=== PATIENT | female | born 1995 | race Hispanic/Latino ===

== ENCOUNTER 2019-07-26 10:23 | Emergency (ER) | payer OTHER, SELFPAY ==
[2019-07-26] MEDS ORDERED: ACETAMINOPHEN 500 MG TAB ONE (10:56)
[2019-07-26] MEDS ORDERED: ONDANSETRON 4 MG (ODT) TAB ONE (10:57)
[2019-07-26] MEDS ORDERED: NA CHLORIDE 0.9% 1,000 ML ONE ×2 (12:05→13:36)
[2019-07-26 12:07] LABS: Absolute Lymphocytes (CBC) 0.6 K/uL (0.7-4.9); Basophils % 0.4 % (0-1.3); Hematocrit 41.3 % (36.0-45.0); Lymphocytes % 3.9 % (15.3-44.8); MPV 9.5 fL (7.6-11.3); RBC Red Blood Cell Count 4.72 M/uL (3.86-4.86)
[2019-07-26] MEDS ORDERED: FENTANYL CITR 100 MCG/2 ML ONE (12:08)
[2019-07-26 12:11] LABS: Protime INR 1.06
--- NOTE | 2019-07-26 12:14 | RAD REPORT ---
EXAM DESCRIPTION: CT - Head Brain Wo Cont - 07/26/2019 11:50 am CLINICAL HISTORY: Headache COMPARISON: 2014 TECHNIQUE: Computed axial tomography of the head was obtained. IV contrast was not requested. All CT scans are performed using dose optimization technique as appropriate and may include automated exposure control or mA/KV adjustment according to patient size. FINDINGS: An intracranial bleed is not seen . The ventricles are small but without change from the prior exam. This probably is a normal variant No extra-axial fluid collection is noted. Fluid within the sinuses/ mastoids is not seen. IMPRESSION: No acute intracranial abnormality seen. If patient's symptoms persist MRI may be helpful
[2019-07-26 12:20] LABS: Potassium 3.8 mmol/L (3.5-5.1)
[2019-07-26] MEDS ORDERED: ONDANSETRON 4 MG/2 ML VIAL ONE (12:42)
[2019-07-26] MEDS ORDERED: PROMETHAZINE 25 MG/ML VIAL ONE (12:47)
[2019-07-26] MEDS ORDERED: LIDOCAINE 1% MPF 5 ML VIAL ONE (12:47)
[2019-07-26 13:27] LABS: Blood Morphology Comment NOT SEEN (NOT SEEN); Platelet Estimate ADEQ; Urine White Blood Cell Casts OK
[2019-07-26] MEDS ORDERED: CEFTRIAXONE/SWI 1gm 2 GM/20 ML SYR ONE (13:33)
[2019-07-26] MEDS ORDERED: DIAZEPAM 10 MG/2 ML INJ SYRINGE ONE (13:33)
--- NOTE | 2019-07-26 15:03 | RAD REPORT ---
EXAM DESCRIPTION: RAD - Lumbar Puncture For Dx - 07/26/2019 2:56 pm CLINICAL HISTORY: Fever, altered mental status COMPARISON: None. TECHNIQUE: Consent for the procedure was obtained in the emergency department. ED department procedu re was not successful and patient was transferred to Radiology Department for a fluoro guided LP. The patient was placed in an oblique prone position on the fluoroscopic table. The skin of the lower back was prepped and draped in the usual sterile fashion. After anesthetizing the skin and deeper sof t tissues with 1% lidocaine, a 22 gauge needle was advanced into the thecal sac at the L3 level. Intrathecal placement was confirmed. Clear colorless CSF was observed. A total of 8.5 mL was obtained . At the conclusion of the procedure, the needle was withdrawn and a sterile bandage placed over the pu ncture site. The patient tolerated the procedure well without immediate complications. Patient was transferred back to the emergency department for continued care. IMPRESSION: Successful fluoroscopic guided lumbar puncture. Obtain fluid was returned to the emerge ncy department for appropriate studies.
[2019-07-26 15:30] LABS: CSF Glucose 58 mg/dL (40-70)
[2019-07-26 15:36] LABS: Body Fluid Source CSF; Color of fluid Colorless (COLORLESS); Fluid Total Volume 8 ml
[2019-07-26 15:37] LABS: Appearance CLEAR (CLEAR)
[2019-07-26 16:03] LABS: Body Fluid WBC 1 /mm^3
[2019-07-26 16:04] LABS: Appearance CLEAR (CLEAR); Body Fluid Source CSF; Body Fluid WBC 0 /mm^3; Color of fluid Colorless (COLORLESS)
[2019-07-26 17:19] LABS: Urine Bacteria 20-50 /HPF (<20); Urine Culture Reflex Order REFLEXED; Urine Mucus MOD /HPF (NONE SEEN)
--- NOTE | 2019-07-26 17:21 | ER ---
Nurse's Notes [facility] Name: Cris York Age: 23 yrs Sex: Female : 1995 Arrival Date: 07/26/2019 Time: 10:24 Bed 7 Private MD: Hunter Young R Diagnosis: Headache;Fever, unspecified;Nausea and vomiting Presentation: 07/26 10:49 Presenting complaint: Patient states: "I woke up and I keep throwing up. I feel dizzy aj1 and I keep getting the chills" Reports headache. Denies abdominal pain. Transition of care: patient was not received from another setting of care. Onset of symptoms was July 26, 2019. Risk Assessment: Do you want to hurt yourself or someone else? Patient reports no desire to harm self or others. Initial Sepsis Screen: Does the patient meet any 2 criteria? Temp <36.0*C (96.8*F)) or > 38.3*C (100.9*F). HR > 90 bpm. Yes Does the patient have a suspected source of infection? No. Patient's initial sepsis screen is negative. Care prior to arrival: None. 10:49 Method Of Arrival: Ambulatory aj1 10:49 Acuity: JOLENE 3 aj1 Triage Assessment: 10:51 General: Appears uncomfortable, Behavior is calm, cooperative, appropriate for age. aj1 Pain: Complains of pain in occipital area Pain currently is 10 out of 10 on a pain scale. Neuro: Level of Consciousness is awake, alert, obeys commands, Oriented to person, place, time, situation. Respiratory: Airway is patent Respiratory effort is even, unlabored, Respiratory pattern is regular, symmetrical. GI: Reports diarrhea, nausea, vomiting. 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 - Social history:: Smoking status: Patient uses tobacco products, denies chronic smoking, but will smoke occasionally. - Ebola Screening: : Patient denies travel to an Ebola-affected area in the 21 days before illness onset. Screenin:48 Abuse screen: Denies threats or abuse. Denies injuries from another. Nutritional sg screening: No deficits noted. Tuberculosis screening: Never had TB. Fall Risk None identified. Assessment: 10:30 General: Appears in no apparent distress. uncomfortable, well groomed, well developed, sg well nourished, Behavior is calm, cooperative, appropriate for age. Pain: Complains of pain in occipital area Quality of pain is described as aching, throbbing. Neuro: Level of Consciousness is awake, alert, obeys commands, Oriented to person, place, time, [place] are equal bilaterally Moves all extremities. Full function Gait is steady, Speech is normal, Facial symmetry appears normal, Pupils are PERRLA, Reports headache in entire occipital area. Cardiovascular: Capillary refill is brisk in bilateral fingers Patient's skin is warm and dry. Chest pain is denied. Respiratory: Airway is patent Respiratory effort is even, unlabored, Respiratory pattern is regular, symmetrical. GI: Abdomen is round non-distended, Reports nausea, tolerance of fluids, tolerance of food. : No signs and/or symptoms were reported regarding the genitourinary system. EENT: No signs and/or symptoms were reported regarding the EENT system. Derm: Skin is pink, warm \\T\\ dry. Musculoskeletal: Circulation, motion, and sensation intact. Range of motion: intact in all extremities. 11:30 Reassessment: Patient appears in no apparent distress at this time. Patient and/or sg family updated on plan of care and expected duration. Pain level reassessed. Patient is alert, oriented x 3, equal unlabored respirations, skin warm/dry/pink. Patient states feeling better. 12:30 Reassessment: Patient appears in no apparent distress at this time. Patient and/or sg family updated on plan of care and expected duration. Pain level reassessed. Patient is alert, oriented x 3, equal unlabored respirations, skin warm/dry/pink. Patient states feeling better. 13:45 Reassessment: Patient appears in no apparent distress at this time. pt transported to radiology for fluro LP at this time, pt left in stable condition with community service technician Cartwright. 14:44 Reassessment: Patient appears in no apparent distress at this time. pt remains off the unit for Fluoro LP at this time. 16:40 Reassessment: Patient appears in no apparent distress at this time. Patient and/or sg family updated on plan of care and expected duration. Pain level reassessed. Patient is alert, oriented x 3, equal unlabored respirations, skin warm/dry/pink. Patient states feeling better. 16:49 Reassessment: Patient appears in no apparent distress at this time. pt tolerating sg stevie crackers and sprite at this time. Vital Signs: 10:51 BP 112 / 56; Pulse 120; Resp 18; Temp 101.2; Pulse Ox 97% on R/A; Weight 89.36 kg (R); aj1 Height 5 ft. 3 in. (160.02 cm) (R); Pain 10/10; 14:55 BP 116 / 62; Pulse 84; Resp 14; Temp 98.8; Pulse Ox 100% on R/A; sg 15:50 BP 117 / 60; Pulse 87; Resp 17; Pulse Ox 97% on R/A; sg 17:00 BP 128 / 77; Pulse 92; Resp 17; Temp 99.0; Pulse Ox 99% on R/A; sg 10:51 Body Mass Index 34.90 (89.36 kg, 160.02 cm) aj1 ED Course: 10:24 Patient arrived in ED. as 10:25 Hunter Young MD is Private Physician. as 10:50 Triage completed. aj1 10:51 Arm band placed on Patient placed in waiting room, Patient notified of wait time. aj1 11:04 Strep Sent. hb 11:04 Flu Sent. hb 11:21 Santo Montes De Oca PA is PHCP. cp 11:21 Kei Julio MD is Attending Physician. cp 11:29 Evan Guzman, GHASSAN is Primary Nurse. sg 11:37 Throat Culture Sent. sv 11:45 Initial lab(s) drawn, by me, sent to lab. jb1 11:57 CT Head Brain wo Cont In Process Unspecified. EDMS 12:01 Inserted saline lock: 22 gauge in right antecubital area, using aseptic technique. jb1 Blood collected. 15:06 Lumbar Puncture For Dx In Process Unspecified. EDMS 16:50 Patient has correct armband on for positive identification. Bed in low position. Call sg light in reach. 17:54 No provider procedures requiring assistance completed. IV discontinued, intact, hb bleeding controlled, No redness/swelling at site. Pressure dressing applied. Administered Medications: 10:57 Drug: Zofran 4 mg Route: PO; aj1 11:32 Follow up: Response: No adverse reaction; Nausea unchanged sg 10:58 Drug: Tylenol 1000 mg Route: PO; aj1 11:25 Follow up: Response: No adverse reaction sg 12:12 Drug: NS 0.9% 1000 ml Route: IV; Rate: 1 bolus; Site: right antecubital; hb 12:12 Drug: fentaNYL (PF) 25 mcg Route: IVP; Site: right antecubital; hb 13:00 Follow up: Response: No adverse reaction; Pain is decreased; RASS: Drowsy (-1) sg 12:40 Drug: Zofran 4 mg Route: IVP; Site: right antecubital; sg 13:15 Follow up: Response: No adverse reaction; Nausea is decreased sg 12:50 Drug: Phenergan 12.5 mg Route: IVP; Site: right antecubital; sg 13:40 Follow up: Response: No adverse reaction; Nausea is decreased sg 13:42 Drug: Diazepam 2 mg Route: IVP; Site: right antecubital; sg 14:49 Follow up: Response: No adverse reaction; RASS: Drowsy (-1) sg 16:42 Drug: Rocephin 2 grams Route: IV; Rate: calculated rate; Site: right antecubital; sg 17:28 Not Given (Patient Refused; i just want to drink sprite): NS 0.9% 1000 ml IV at 1 bolus sg Per protocol; 1000 mL bolus Outcome: 17:20 Discharge ordered by . 17:54 Discharged to home ambulatory, with family. hb 17:54 Condition: stable 17:54 Discharge instructions given to patient, Instructed on discharge instructions, follow up and referral plans. medication usage, Demonstrated understanding of instructions, follow-up care, medications, Prescriptions given X 3. 17:57 Patient left the ED. Signatures: Dispatcher [employer] EDMS Kenney Soler Angela, RN RN ajTrina Calixto RN RN sv Gay, Steven, RN RN sg Martinez, Amelia as Page, Corey, PA PA cp Baxter, Heather, RN RN
--- NOTE | 2019-07-26 17:21 | EDPHYS ---
Physician Documentation [facility] Name: Cris York Age: 23 yrs Sex: Female : 1995 Arrival Date: 07/26/2019 Time: 10:24 Bed 7 Private MD: Hunter Young R ED Physician Kei Julio HPI: 07/26 11:05 This 23 yrs old Female presents to ER via Ambulatory with complaints of cp Vomiting, Fever. 11:05 The patient presents to the emergency department with nausea, that is moderate, cp vomiting, that is intermittent. Onset: The symptoms/episode began/occurred this morning. Associated signs and symptoms: Pertinent positives: fever, headache. 11:05 Severity of symptoms: in the emergency department the symptoms are unchanged despite cp home interventions. 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 - Social history:: Smoking status: Patient uses tobacco products, denies chronic smoking, but will smoke occasionally. - Ebola Screening: : Patient denies travel to an Ebola-affected area in the 21 days before illness onset. ROS: 11:15 Constitutional: Positive for fever, Negative for body aches, chills, poor PO intake. cp 11:15 Eyes: Negative for injury, pain, redness, and discharge. cp 11:15 ENT: Negative for drainage from ear(s), ear pain, sore throat, difficulty swallowing, difficulty handling secretions. 11:15 Neck: Positive for pain with movement, pain at rest, tenderness. 11:15 Cardiovascular: Negative for chest pain, palpitations. 11:15 Respiratory: Negative for cough, shortness of breath, wheezing. 11:15 Abdomen/GI: Positive for nausea and vomiting, Negative for abdominal pain, diarrhea, constipation. 11:15 : Negative for urinary symptoms. 11:15 Skin: Negative for rash. 11:15 Neuro: Positive for headache, Negative for altered mental status, weakness. 11:15 All other systems are negative. Exam: 11:25 Constitutional: The patient appears in no acute distress, alert, awake, cp non-diaphoretic, non-toxic, well developed, well nourished, obese, uncomfortable. 11:25 Head/Face: Normocephalic, atraumatic. Eyes: Pupils equal round and reactive to light, cp extra-ocular motions intact. Lids and lashes normal. Conjunctiva and sclera are non-icteric and not injected. Cornea within normal limits. Periorbital areas with no swelling, redness, or edema. ENT: Nares patent. No nasal discharge, no septal abnormalities noted. Tympanic membranes are normal and external auditory canals are clear. Oropharynx with no redness, swelling, or masses, exudates, or evidence of obstruction, uvula midline. Mucous membranes moist. 11:25 Neck: ROM/movement: pain, that is mild, with any movement, limited range of motion, is not appreciated, nuchal rigidity, is not appreciated. 11:25 Chest/axilla: Inspection: normal, Palpation: is normal, no crepitus, no tenderness. 11:25 Cardiovascular: Rate: tachycardic, Rhythm: regular. 11:25 Respiratory: the patient does not display signs of respiratory distress, Respirations: normal, no use of accessory muscles, no retractions, no splinting, no tachypnea, labored breathing, is not present, Breath sounds: are clear throughout, no decreased breath sounds, no stridor, no wheezing. 11:25 Abdomen/GI: Inspection: abdomen appears normal, Bowel sounds: active, all quadrants, Palpation: abdomen is soft and non-tender, in all quadrants, rebound tenderness, is not appreciated, voluntary guarding, is not appreciated, involuntary guarding, is not appreciated. 11:25 Back: pain, is absent, ROM is normal. 11:25 Skin: no rash present. 11:25 Neuro: Orientation: to person, place \T\ time. Mentation: is normal, Cerebellar function: is grossly normal, Motor: moves all fours, strength is normal, Sensation: is normal. Vital Signs: 10:51 BP 112 / 56; Pulse 120; Resp 18; Temp 101.2; Pulse Ox 97% on R/A; Weight 89.36 kg (R); aj1 Height 5 ft. 3 in. (160.02 cm) (R); Pain 10/10; 14:55 BP 116 / 62; Pulse 84; Resp 14; Temp 98.8; Pulse Ox 100% on R/A; sg 15:50 BP 117 / 60; Pulse 87; Resp 17; Pulse Ox 97% on R/A; sg 17:00 BP 128 / 77; Pulse 92; Resp 17; Temp 99.0; Pulse Ox 99% on R/A; sg 10:51 Body Mass Index 34.90 (89.36 kg, 160.02 cm) [facility] Procedures: 12:30 Lumbar Puncture: Patient placed in left lateral decubitus position. Prepped with cp Betadine. Procedure unsuccessful. Patient tolerated well. MDM: 11:31 Patient medically screened. cp 12:00 Differential diagnosis: gastritis, viral gastroenteritis, gastroenteritis, meningitis, cp viral illness, influenza. 17:20 Data reviewed: vital signs, nurses notes, lab test result(s), radiologic studies, CT cp scan, I have discussed the patient's presentation/case with the attending Emergency Department Physician; and as a result, I will discharge patient. 17:20 Counseling: I had a detailed discussion with the patient and/or guardian regarding: the cp historical points, exam findings, and any diagnostic results supporting the discharge/admit diagnosis, lab results, radiology results, to return to the emergency department if symptoms worsen or persist or if there are any questions or concerns that arise at home. Response to treatment: the patient's symptoms have markedly improved after treatment. ED course: VSS. Headache and nausea markedly improved. Vomiting resolved. CSF negative for meningitis. Will discharge to home for continued monitoring. 07/26 10:58 Order name: Flu; Complete Time: 12:13 [facility] 07/26 10:58 Order name: Strep; Complete Time: 12:13 [facility] 07/26 11:24 Order name: Throat Culture [facility] 07/26 11:37 Order name: Urine Microscopic Only 07/26 11:37 Order name: CBC with Diff; Complete Time: 14:32 07/26 12:23 Interpretation: Normal except: MICHELE% 91.3; LYM% 3.9; NEUT A 14.8; LYMA 0.6; WBC 16.2. 07/26 11:37 Order name: BMP; Complete Time: 12:22 07/26 14:52 Interpretation: Normal except: GFR 83. 07/26 11:37 Order name: PT-INR; Complete Time: 12:22 07/26 12:04 Order name: Spinal Fluid Profile; Complete Time: 16:14 cp 07/26 12:18 Order name: [place] Screen Profile; Complete Time: 14:32 sg 07/26 14:32 Interpretation: Reviewed. 07/26 13:32 Order name: CBC Smear Scan; Complete Time: 14:32 [facility] 07/26 15:22 Order name: Body Fluid Cell Count; Complete Time: 16:14 [facility] 07/26 15:22 Order name: Miscellaneous Test Lab; Complete Time: 16:03 [facility] 07/26 15:22 Order name: CSF Culture [facility] 07/26 16:39 Order name: Urine Dipstick--Ancillary (enter results) 07/26 11:38 Order name: CT Head Brain wo Cont; Complete Time: 14:32 07/26 14:32 Interpretation: Report reviewed. 07/26 13:26 Order name: Lumbar Puncture For Dx; Complete Time: 15:31 [facility] 07/26 16:39 Order name: Urine --Ancillary (enter results) 07/26 17:23 Order name: Urine Culture [facility] 07/26 11:37 Order name: IV; Complete Time: 12:02 07/26 13:20 Order name: Lumbar Puncture Consent; Complete Time: 13:28 07/26 16:15 Order name: PO challenge; Complete Time: 16:49 cp Administered Medications: 10:57 Drug: Zofran 4 mg Route: PO; aj1 11:32 Follow up: Response: No adverse reaction; Nausea unchanged sg 10:58 Drug: Tylenol 1000 mg Route: PO; aj1 11:25 Follow up: Response: No adverse reaction sg 12:12 Drug: NS 0.9% 1000 ml Route: IV; Rate: 1 bolus; Site: right antecubital; hb 12:12 Drug: fentaNYL (PF) 25 mcg Route: IVP; Site: right antecubital; hb 13:00 Follow up: Response: No adverse reaction; Pain is decreased; RASS: Drowsy (-1) sg 12:40 Drug: Zofran 4 mg Route: IVP; Site: right antecubital; sg 13:15 Follow up: Response: No adverse reaction; Nausea is decreased sg 12:50 Drug: Phenergan 12.5 mg Route: IVP; Site: right antecubital; sg 13:40 Follow up: Response: No adverse reaction; Nausea is decreased sg 13:42 Drug: Diazepam 2 mg Route: IVP; Site: right antecubital; sg 14:49 Follow up: Response: No adverse reaction; RASS: Drowsy (-1) sg 16:42 Drug: Rocephin 2 grams Route: IV; Rate: calculated rate; Site: right antecubital; sg 17:28 Not Given (Patient Refused; i just want to drink sprite): NS 0.9% 1000 ml IV at 1 bolus sg Per protocol; 1000 mL bolus Disposition: 07/26/19 17:20 Discharged to Home. Impression: Headache, Fever, unspecified, Nausea and vomiting. - Condition is Stable. - Discharge Instructions: Dehydration, Adult, Fever, Adult, General Headache Without Cause, Nausea and Vomiting, Adult. - Prescriptions for Ibuprofen 800 mg Oral Tablet - take 1 tablet by ORAL route every 8 hours As needed take with food; 30 tablet. Zofran 4 mg Oral Tablet - take 1 tablet by ORAL route every 12 hours As needed; 20 tablet. Phenergan 25 mg Rectal Suppository - insert 1 suppository by RECTAL route every 6 hours As needed; 12 suppository. - Work release form, Medication Reconciliation Form, Thank You Letter, Antibiotic Education, Prescription Opioid Use form. - Follow up: Private Physician; When: 2 - 3 days; Reason: Recheck today's complaints. - Problem is new. - Symptoms have improved. Addendum: 07/29/2019 08:46 Co-signature as Attending Physician, Kei Julio MD I agree with the assessment and k dr plan of care. Signatures: Dispatcher [employer] [facility] Krystina Schultz RN RN aj1 Evan Guzman RN RN sg Rittger, Kevin, MD MD kdr Page, Corey, PA PA cp Kari Motta, GHASSAN RN hb Corrections: (The following items were deleted from the chart) 07/26 12:23 12:13 Normal except: WBC 16.2; MICHELE% 91.3; LYM% 3.9; NEUT A 14.8. cp cp 13:26 13:25 Fluoro Guide Spinal Inj ordered. [facility] 17:57 17:20 07/26/2019 17:20 Discharged to Home. Impression: Headache; Fever, unspecified; hb Nausea and vomiting. Condition is Stable. Forms are Medication Reconciliation Form, Thank You Letter, Antibiotic Education, Prescription Opioid Use. Follow up: Private Physician; When: 2 - 3 days; Reason: Recheck today's complaints. Problem is new. Symptoms have improved. cp
[2019-07-26 17:25] LABS: Urine Blood 1+ (NEG); Urine Glucose NEGATIVE (NEG); Urine Protein TRACE (NEG)
[2019-07-26 19:00] VITALS: BP 128/77; TEMP 99; O2SAT 99
== END 2019-07-26 17:57 | disposition home or self-care (01) ==
LOC: ER 10:23
PROC: 009U3ZX Drainage of Spinal Canal, Percutaneous Approach, Diagnostic (ICD-10-PCS; principal; 2019-07-26)
DX: R51 Headache (principal); R11.2 Nausea with vomiting, unspecified; Z72.0 Tobacco use
CPT/HCPCS: 36415; 62270; 70450; 77003; 80048; 81003; 81015; 81025; 82945; 84157; 85025; 85610; 86308; 87070; 87081; 87086; 87088; 87804; 89050; 96374; 96375; 99284; J0696; J2405; J2550; J3010; J3360; J7030

== ENCOUNTER 2019-09-08 01:47 | Emergency (ER) | payer SELFPAY ==
[2019-09-08] MEDS ORDERED: NA CHLORIDE 0.9% 1,000 ML ONE (02:06)
[2019-09-08] MEDS ORDERED: ONDANSETRON 4 MG/2 ML VIAL ONE (02:07)
[2019-09-08 02:36] LABS: Absolute Lymphocytes (CBC) 2.4 K/uL (0.7-4.9); Basophils % 0.4 % (0-1.3); Hematocrit 36.8 % (36.0-45.0); Lymphocytes % 36.4 % (15.3-44.8); RBC Red Blood Cell Count 4.17 M/uL (3.86-4.86)
[2019-09-08] MEDS ORDERED: CEFAZOLIN/SWI 1gm 1 GM/10 ML SYR ONE (02:42)
[2019-09-08 02:44] LABS: Protime INR 0.98
[2019-09-08 02:56] LABS: ALT/SGPT 24 U/L (12-78); AST/SGOT 24 U/L (15-37); Albumin 3.7 g/dL (3.4-5.0); Alkaline Phosphatase 137 U/L (45-117); BUN Blood Urea Nitrogen 8 mg/dL (7-18); Bicarbonate 20 mmol/L (21-32); Bilirubin Direct < 0.1 mg/dL (0-0.2); Bilirubin Total 0.3 mg/dL (0.2-1.0); Glucose Level 104 mg/dL (74-106); Protein, Total 7.6 g/dL (6.4-8.2); Sodium Level 143 mmol/L (136-145)
[2019-09-08 02:57] LABS: Potassium 2.9 mmol/L (3.5-5.1)
[2019-09-08] MEDS ORDERED: POTASSIUM 25 MEQ EFFERV TAB ONE (03:00)
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
[2019-09-08] MEDS ORDERED: HYDROCODONE/APAP 10/325 TAB ONE (03:36)
[2019-09-08] MEDS ORDERED: ONDANSETRON 4 MG (ODT) TAB ONE (03:36)
[2019-09-08 05:22] VITALS: BP 116/65; O2SAT 98
--- NOTE | 2019-09-08 06:22 | EKG ---
Test Date: 2019-09-08 Test Time: 03:40:37 Director Hospice Operations: RR MEASUREMENT RESULTS: Intervals: Rate: 92 RI: 172 QRSD: 82 QT: 360 QTc: 445 [place]: P: 32 RI: 172 QRS: 28 T: 6 INTERPRETIVE STATEMENTS: Normal sinus rhythm Possible Left atrial enlargement Borderline ECG Compared to ECG 06/06/2017 21:14:01 No significant changes Electronically Signed On 09-08-19 06:22:09 [employer]AMP [employer]OOK by Spike Morgan
--- NOTE | 2019-09-08 11:51 | RAD REPORT ---
EXAM DESCRIPTION: RAD - Chest Single View - 09/08/2019 2:11 am CLINICAL HISTORY: COUGH Chest pain. COMPARISON: Chest Pa And Lat (2 Views) dated 06/06/2017 FINDINGS: Portable technique limits examination quality. The lungs are grossly clear. The heart is normal in size. No displaced fractures. IMPRESSION: No acute intrathoracic process suspected.
--- NOTE | 2019-09-09 10:19 | RAD REPORT ---
EXAM DESCRIPTION: CT Head and Cervical Spine Without Intravenous Contrast CLINICAL HISTORY: The patient is 24 years old and is Female; PAIN TECHNIQUE: Axial computed tomography images of the head/brain and cervical spine without intravenous contrast. Sagittal and coronal reformatted images were created and reviewed. This CT exam was pe rformed using one or more of the following dose reduction techniques: automated exposure control, a djustment of the mA and/or kV according to patient size, and/or use of iterative reconstruction techn ique. COMPARISON: None. FINDINGS: BRAIN: Unremarkable. No hemorrhage. No significant white matter disease. No edema . VENTRICLES: Unremarkable. No ventriculomegaly. SKULL: No acute fracture. SINUSES: Scattered opacification of the ethmoid. No air-fluid level. MASTOID AIR CELLS: Mastoid air cells are well pneumatized. ORBITS: The globes and orbits are unremarkable. VERTEBRAE: Reversal of cervical lordosis centered at C6-7. Preservation of vertebral body alignment. No acute fracture. DISCS/SPINAL CANAL/NEURAL FORAMINA: No acute findings. No spinal canal stenosis. SOFT TISSUES: Right frontal laceration and associated swelling with overlying skin staple row. THYROID: Visualized thyroid is within normal limits. LUNG APICES: Visualized lungs are clear. IMPRESSION: 1. No acute intracranial abnormality. 2. Reversal of cervical lordosis without acute fracture or subluxation. 3. Right frontal laceration and associated swelling with overlying skin staple row. Electronically signed by: Kevin Alcantar DO 09/08/2019 2:55 AM CIRCUIT BREAKER ASSEMBLER Due to temporary technical issues with the PACS/Fluency reporting system, reports are being signed by the in house radiologist as a courtesy to ensure prompt reporting. The interpreting radiologist is f ully responsible for the content of the report.
== END 2019-09-08 03:45 | disposition home or self-care (01) ==
LOC: ER 01:47
PROC: 0JQ00ZZ Repair Scalp Subcutaneous Tissue and Fascia, Open Approach (ICD-10-PCS; principal; 2019-09-08)
DX: S00.90XA Unspecified superficial injury of unspecified part of head, initial encounter (principal); Y04.2XXA Assault by strike against or bumped into by another person, initial encounter; Y93.89 Activity, other specified; Y92.89 Other specified places as the place of occurrence of the external cause; Z72.0 Tobacco use; E87.6 Hypokalemia; R11.10 Vomiting, unspecified; S01.01XA Laceration without foreign body of scalp, initial encounter
CPT/HCPCS: 36415; 70450; 71045; 72125; 80048; 80076; 80320; 80329; 85025; 85610; 85730; 93005; 96361; 96365; 96375; 99284; J0690; J2405; J7030

== ENCOUNTER 2019-09-17 17:32 | Emergency (ER) | payer SELFPAY ==
--- OUTSIDE RECORDS SUMMARY | 2019-09-17 17:34 | XMS REPORT ---
:1995 [facility] [address] [place] [address] Dr. Doss [address] [place] [id number] Care Team Providers Name Role Phone Unavailable Unavailable Unavailable Problems This patient has no known problems. Allergies, Adverse Reactions, Alerts This patient has no known allergies or adverse reactions. Medications This patient has no known medications.
--- NOTE | 2019-09-17 18:01 | ER ---
Nurse's Notes [facility] Name: Cris York Age: 24 yrs Sex: Female : 1995 Arrival Date: 09/17/2019 Time: 17:35 Bed 11 Private MD: Diagnosis: Encounter for removal of sutures-shannon Presentation: 09/17 17:54 Presenting complaint: Patient states: SHANNON PUT ON 8 DAYS AGO. Transition of care: rv patient was not received from another setting of care. Onset of symptoms was September 17, 2019 at 17:55. Risk Assessment: Do you want to hurt yourself or someone else? Patient reports no desire to harm self or others. Initial Sepsis Screen: Does the patient meet any 2 criteria? No. Patient's initial sepsis screen is negative. Does the patient have a suspected source of infection? No. Patient's initial sepsis screen is negative. Care prior to arrival: None. 17:54 Method Of Arrival: Ambulatory rv 17:54 Acuity: JOLENE 5 rv Triage Assessment: 17:58 General: Behavior is calm. General: Appears in no apparent distress. Pain: Denies pain. rv Historical: - Allergies: 17:56 No Known Allergies; rv - Home Meds: 17:56 Ibuprofen Oral [Active]; rv - PMHx: 17:56 None; rv - PSHx: 17:56 None; rv - Immunization history:: Adult Immunizations up to date. - Social history:: Smoking status: Patient uses tobacco products, denies chronic smoking, but will smoke occasionally. - Ebola Screening: : No symptoms or risks identified at this time. Screenin:58 Abuse screen: Denies threats or abuse. Denies injuries from another. Nutritional rv screening: No deficits noted. Tuberculosis screening: No symptoms or risk factors identified. Fall Risk None identified. Assessment: 17:57 General: Appears in no apparent distress. comfortable. Pain: Denies pain. Neuro: Level rv of Consciousness is awake, alert, obeys commands, Oriented to person, place, time, situation. Cardiovascular: Patient's skin is warm and dry. Respiratory: Airway is patent. GI: No signs and/or symptoms were reported involving the gastrointestinal system. : No signs and/or symptoms were reported regarding the genitourinary system. EENT: No signs and/or symptoms were reported regarding the EENT system. Derm: Skin is intact. Musculoskeletal: No signs and/or symptoms reported regarding the musculoskeletal system. Vital Signs: 17:55 Pulse 67; Resp 16; Temp 99; Pulse Ox 100% ; rv ED Course: 17:35 Patient arrived in ED. mr 17:55 Triage completed. rv 17:57 [facility]-C [facility]. kb 17:57 El Adrian MD is Attending Physician. kb 17:58 Patient has correct armband on for positive identification. Pulse ox on. rv 17:58 STAPLE REMOVAL. Patient did not have IV access during this emergency room visit. rv 17:59 Darvin Garcia, RN is Primary Nurse. rv 17:59 Patient notified of wait time. rv Administered Medications: No medications were administered Outcome: 17:58 Discharge ordered by . kb 17:59 Discharged to home ambulatory. rv 17:59 Condition: good 17:59 Discharge instructions given to patient, Instructed on discharge instructions, follow up and referral plans. Demonstrated understanding of instructions, follow-up care. 17:59 Patient left the ED. rv Signatures: Norma Greer FNP-C FNP-Khadijah Nuzhat Ferreira mr Darvin Garcia, RN RN rv
--- NOTE | 2019-09-17 18:01 | EDPHYS ---
Physician Documentation [facility] Name: Cris York Age: 24 yrs Sex: Female : 1995 Arrival Date: 09/17/2019 Time: 17:35 Bed 11 Private MD: ED Physician El Adrian HPI: 09/17 18:02 This 24 yrs old Female presents to ER via Ambulatory with complaints of Staple kb Removal. 18:02 The patient has shannon on the right frontal area. Previous treatment: The patient was kb initially treated on September 08, 2019, the care was rendered at [facility]. Sutures/shannon progress: The patient has no c/o's. The wound is well-healing with no redness, swelling, discharge, or dehiscence reported. The patient has not experienced similar symptoms in the past. The patient has not recently seen a physician. Historical: - Allergies: 17:56 No Known Allergies; rv - Home Meds: 17:56 Ibuprofen Oral [Active]; rv - PMHx: 17:56 None; rv - PSHx: 17:56 None; rv - Immunization history:: Adult Immunizations up to date. - Social history:: Smoking status: Patient uses tobacco products, denies chronic smoking, but will smoke occasionally. - Ebola Screening: : No symptoms or risks identified at this time. ROS: 18:01 Constitutional: Negative for fever, chills, and weight loss, Neck: Negative for injury, kb pain, and swelling, Cardiovascular: Negative for chest pain, palpitations, and edema, Respiratory: Negative for shortness of breath, cough, wheezing, and pleuritic chest pain, Abdomen/GI: Negative for abdominal pain, nausea, vomiting, diarrhea, and constipation, Back: Negative for injury and pain, MS/Extremity: Negative for injury and deformity, Neuro: Negative for headache, weakness, numbness, tingling, and seizure. 18:01 Skin: Positive for shannon to right side of scalp. Exam: 18:01 Constitutional: This is a well developed, well nourished patient who is awake, alert, kb and in no acute distress. Head/Face: Normocephalic, atraumatic. ENT: Nares patent. No nasal discharge, no septal abnormalities noted. Tympanic membranes are normal and external auditory canals are clear. Oropharynx with no redness, swelling, or masses, exudates, or evidence of obstruction, uvula midline. Mucous membranes moist. Neck: Trachea midline, no thyromegaly or masses palpated, and no cervical lymphadenopathy. Supple, full range of motion without nuchal rigidity, or vertebral point tenderness. No Meningismus. Chest/axilla: Normal chest wall appearance and motion. Nontender with no deformity. No lesions are appreciated. Cardiovascular: Regular rate and rhythm with a normal S1 and S2. No gallops, murmurs, or rubs. Normal PMI, no JVD. No pulse deficits. Respiratory: Lungs have equal breath sounds bilaterally, clear to auscultation and percussion. No rales, rhonchi or wheezes noted. No increased work of breathing, no retractions or nasal flaring. Abdomen/GI: Soft, non-tender, with normal bowel sounds. No distension or tympany. No guarding or rebound. No evidence of tenderness throughout. MS/ Extremity: Pulses equal, no cyanosis. Neurovascular intact. Full, normal range of motion. Neuro: Awake and alert, GCS 15, oriented to person, place, time, and situation. Cranial nerves II-XII grossly intact. Motor strength 5/5 in all extremities. Sensory grossly intact. Cerebellar exam normal. Normal gait. 18:01 Skin: Wound recheck: Staple laceration closure: the wound is healing well, the edges are well approximated, no evidence of dehiscence, no drainage, no erythema, no swelling. Vital Signs: 17:55 Pulse 67; Resp 16; Temp 99; Pulse Ox 100% ; rv Procedures: 18:01 Suture/Staple removal: Removed 4 shannon, from right frontal area, site appears well kb healed, Patient tolerated well. MDM: 17:58 Patient medically screened. kb 18:00 Data reviewed: vital signs, nurses notes. Data interpreted: Pulse oximetry: on room air kb is 100 %. Interpretation: normal. Counseling: I had a detailed discussion with the patient and/or guardian regarding: the historical points, exam findings, and any diagnostic results supporting the discharge/admit diagnosis, the need for outpatient follow up, a family practitioner, to return to the emergency department if symptoms worsen or persist or if there are any questions or concerns that arise at home. Administered Medications: No medications were administered Disposition: 18:16 Co-signature as Attending Physician, El Adrian MD. rn Disposition: 09/17/19 17:58 Discharged to Home. Impression: Encounter for removal of sutures - shannon . - Condition is Stable. - Discharge Instructions: Suture Removal, Care After. - Medication Reconciliation Form, Thank You Letter, Antibiotic Education, Prescription Opioid Use form. - Follow up: Emergency Department; When: As needed; Reason: Worsening of condition. Follow up: Private Physician; When: 2 - 3 days; Reason: Recheck today's complaints, Continuance of care, Re-evaluation by your physician. Signatures: Norma Greer, TERI-C COLLEGE ADVISOR-CkEl Chung MD MD rn Darvin Garcia RN RN rv Corrections: (The following items were deleted from the chart) 17:59 17:58 09/17/2019 17:58 Discharged to Home. Impression: Encounter for removal of sutures rv - shannon . Condition is Stable. Forms are Medication Reconciliation Form, Thank You Letter, Antibiotic Education, Prescription Opioid Use. Follow up: Emergency Department; When: As needed; Reason: Worsening of condition. Follow up: Private Physician; When: 2 - 3 days; Reason: Recheck today's complaints, Continuance of care, Re-evaluation by your physician. kb
[2019-09-17 18:07] VITALS: TEMP 99; O2SAT 100
== END 2019-09-17 17:59 | disposition home or self-care (01) ==
LOC: ER 17:32
DX: Z48.02 Encounter for removal of sutures (principal)
CPT/HCPCS: 99282

== ENCOUNTER 2020-01-10 16:12 | Emergency (ER) | payer SELFPAY ==
--- OUTSIDE RECORDS SUMMARY | 2020-01-10 16:14 | XMS REPORT ---
:1995 [facility] [address] [place] [address] Dr. [address] [place] [id number] Care Team Providers Name Role Phone Unavailable Unavailable Unavailable Problems This patient has no known problems. Allergies, Adverse Reactions, Alerts This patient has no known allergies or adverse reactions. Medications This patient has no known medications.
[2020-01-10] MEDS ORDERED: ONDANSETRON 4 MG (ODT) TAB ONE (17:22)
[2020-01-10] MEDS ORDERED: NA CHLORIDE 0.9% 1,000 ML ONE (17:32)
[2020-01-10] MEDS ORDERED: ACETAMINOPHEN 500 MG TAB ONE (17:36)
[2020-01-10 18:04] LABS: Absolute Lymphocytes (CBC) 0.8 K/uL (0.7-4.9); Basophils % 0.5 % (0-1.3); Lymphocytes % 11.4 % (15.3-44.8); MPV 9.6 fL (7.6-11.3); RBC Red Blood Cell Count 4.45 M/uL (3.86-4.86)
[2020-01-10 18:20] LABS: ALT/SGPT 25 U/L (12-78); AST/SGOT 18 U/L (15-37); Albumin 3.5 g/dL (3.4-5.0); Alkaline Phosphatase 106 U/L (45-117); BUN Blood Urea Nitrogen 6 mg/dL (7-18); Bicarbonate 27 mmol/L (21-32); Bilirubin Direct 0.1 mg/dL (0-0.2); Bilirubin Total 0.4 mg/dL (0.2-1.0); Glucose Level 91 mg/dL (74-106); Lipase 80 U/L (73-393); Potassium 3.8 mmol/L (3.5-5.1); Protein, Total 7.7 g/dL (6.4-8.2); Sodium Level 139 mmol/L (136-145)
--- NOTE | 2020-01-10 18:20 | RAD REPORT ---
EXAM DESCRIPTION: RAD - Chest Pa And Lat (2 Views) - 01/10/2020 6:11 pm CLINICAL HISTORY: Cough;Fever Chest pain. COMPARISON: Chest Single View dated 09/08/2019; Chest Pa And Lat (2 Views) dated 06/06/2017 FINDINGS: The lungs are clear. The heart is normal in size. No displaced fractures. IMPRESSION: No acute or concerning finding suspected.
[2020-01-10] MEDS ORDERED: ONDANSETRON 4 MG/2 ML VIAL ONE (19:20)
[2020-01-10] MEDS ORDERED: IBUPROFEN 400 MG TAB ONE (19:20)
--- NOTE | 2020-01-10 19:38 | EDPHYS ---
Physician Documentation [facility] Name: Cris York Age: 24 yrs Sex: Female : 1995 Arrival Date: 01/10/2020 Time: 16:13 Bed 25 Private MD: ED Physician Santo Amezquita HPI: 01/09 16:40 This 24 yrs old Female presents to ER via Ambulatory with complaints of Cough, cp Vomiting, Breathing Difficulty. 16:40 The patient or guardian reports cough, that is intermittent, difficulty breathing. cp Onset: The symptoms/episode began/occurred 2 day(s) ago. Severity of symptoms: in the emergency department the symptoms are unchanged, despite home interventions. Associated signs and symptoms: Pertinent positives: fever, nausea, sore throat, vomiting, Pertinent negatives: chest pain. 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 - Social history:: Smoking status: Patient reports the use of cigarette tobacco products, denies chronic smoking, but will smoke occasionally. ROS: 16:45 Constitutional: Negative for fever. cp 16:45 Eyes: Negative for injury, pain, redness, and discharge. cp 16:45 ENT: Positive for sore throat, Negative for drainage from ear(s), ear pain, difficulty swallowing, difficulty handling secretions. 16:45 Cardiovascular: Negative for chest pain. 16:45 Respiratory: Positive for cough, shortness of breath. 16:45 Abdomen/GI: Positive for nausea and vomiting, Negative for diarrhea, constipation. 16:45 Skin: Negative for rash. 16:45 Neuro: Positive for dizziness, Negative for altered mental status, headache, weakness. 16:45 All other systems are negative. Exam: 16:55 Constitutional: The patient appears in no acute distress, alert, awake, cp non-diaphoretic, non-toxic, well developed, well nourished, obese. 16:55 Head/Face: Normocephalic, atraumatic. cp 16:55 Eyes: Periorbital structures: appear normal, Pupils: equal, round, and reactive to light and accomodation, Extraocular movements: intact throughout, Conjunctiva: normal, no exudate, no injection, Sclera: no appreciated abnormality, Lids and lashes: appear normal, bilaterally. 16:55 ENT: External ear(s): are unremarkable, Ear canal(s): are normal, clear, TM's: dullness, bilaterally, Nose: is normal, Mouth: is normal, Posterior pharynx: is normal, airway is patent, no erythema, no exudate. 16:55 Neck: ROM/movement: is normal, is supple, without pain, no range of motions limitations, no meningismus, no nuchal rigidity. 16:55 Chest/axilla: Inspection: normal, Palpation: is normal, no crepitus, no tenderness. 16:55 Cardiovascular: Rate: normal, Rhythm: regular, Edema: is not appreciated, JVD: is not appreciated. 16:55 Respiratory: the patient does not display signs of respiratory distress, Respirations: normal, no use of accessory muscles, labored breathing, is not present, Breath sounds: bronchial sounds, that are mild, are heard diffusely, decreased breath sounds, are not appreciated, rhonchi, are not appreciated, stridor, is not appreciated, wheezing: is not appreciated. 16:55 Abdomen/GI: Inspection: abdomen appears normal, Palpation: abdomen is soft and non-tender, in all quadrants. 16:55 Back: pain, is absent, ROM is normal. 16:55 Skin: cellulitis, is not appreciated, no rash present. 16:55 Neuro: Orientation: to person, place \T\ time. Mentation: is normal, Cerebellar function: is grossly normal, Motor: is normal, Sensation: is normal. Vital Signs: 16:30 BP 143 / 77; Pulse 93; Resp 20; Pulse Ox 97% on R/A; vc 16:33 BP 146 / 76; Pulse 94; Resp 18; Temp 99.5(O); Pulse Ox 100% on R/A; Weight 114.31 kg; iw Height 5 ft. 3 in. (160.02 cm); Pain 8/10; 17:15 BP 135 / 76 Supine; Pulse 89; vc 17:17 BP 129 / 75 Sitting; Pulse 100; vc 17:19 BP 139 / 81 Standing; Pulse 125; vc 17:30 BP 153 / 88; Pulse 98; Resp 20; Temp 103(O); Pulse Ox 98% on R/A; vc 18:24 BP 130 / 77; Pulse 94; Resp 18; Temp 100.2(O); Pulse Ox 99% on R/A; mh5 19:30 BP 128 / 67; Pulse 98; Resp 19; Pulse Ox 98% on R/A; vc 16:33 Body Mass Index 44.64 (114.31 kg, 160.02 cm) iw MDM: 16:26 Patient medically screened. cp 17:00 Differential Diagnosis: Bronchitis Influenza Viral Syndrome Pneumonia Other meningitis. cp 19:37 Data reviewed: vital signs, nurses notes, lab test result(s), radiologic studies, plain cp films. 19:37 Test interpretation: by ED physician or midlevel provider: plain radiologic studies, cp chest xray negative for infiltrates. Counseling: I had a detailed discussion with the patient and/or guardian regarding: the historical points, exam findings, and any diagnostic results supporting the discharge/admit diagnosis, lab results, radiology results, to return to the emergency department if symptoms worsen or persist or if there are any questions or concerns that arise at home. Response to treatment: the patient's symptoms have markedly improved after treatment, and as a result, I will discharge patient. 03 16:32 Order name: Flu 01/09 16:32 Order name: Strep 01/09 17:25 Order name: Influenza Screen (A ; Complete Time: 17:27 EDMS 01/09 17:27 Interpretation: Abnormal: FLUB FLU B ----- \T\nbsp; \T\nbsp; \T\nbsp; \T\nbsp; \T\nbsp; \T\nbs p; cp \T\nbsp; \T\nbsp; \T\nbsp; POSITIVE for FLU B protein antigen; Reviewed. 01/09 17:25 Order name: Group A Streptococcus Rapid Sc; Complete Time: 17:27 EDMS 01/09 17:27 Order name: Basic Metabolic Panel 01/09 17:27 Order name: CBC with Diff cp 01/09 17:27 Order name: Creatinine for Radiology 01/09 17:27 Order name: Hepatic Function cp 01/09 17:27 Order name: Lipase cp 01/09 18:21 Order name: Basic Metabolic Panel; Complete Time: 18:26 EDMS 01/09 18:26 Interpretation: Normal except: BUN 6. cp 01/09 18:21 Order name: Liver (Hepatic) Function; Complete Time: 18:26 EDMS 01/09 18:26 Interpretation: Normal except: GLOB 4.2; A/G 0.8. cp / 18:21 Order name: Lipase; Complete Time: 18:26 EDMS 01/09 18:21 Order name: Creatinine (Radiology Only); Complete Time: 18:26 EDMS 01/09 18:25 Order name: CBC with Automated Diff; Complete Time: 18:26 EDMS 01/09 18:26 Interpretation: Normal except: MICHELE% 76.4; LYM% 11.4. cp 01/09 17:00 Order name: Orthostatics; Complete Time: 17:43 cp 01/09 17:27 Order name: IV Saline Lock; Complete Time: 17:43 cp 01/09 17:27 Order name: Labs collected and sent; Complete Time: 17:54 cp 01/09 17:50 Order name: XRAY Chest Pa And Lat (2 Views) cp 01/09 17:50 Order name: Urine Dipstick-Ancillary (obtain specimen); Complete Time: 19:14 cp 01/09 17:50 Order name: Urine Test (obtain specimen); Complete Time: 19:14 cp 01/09 18:27 Order name: PO challenge; Complete Time: 19:23 cp 01/09 18:29 Order name: RAD; Complete Time: 19:01 EDTN 01/09 19:01 Interpretation: Report reviewed. cp 01/09 19:28 Order name: Urine Dipstick--Ancillary (enter results) ar5 01/09 19:28 Order name: Urine --Ancillary (enter results) ar5 Administered Medications: 17:14 Drug: Zofran (Ondansetron) 4 mg Route: PO; vc 17:45 Follow up: Response: No adverse reaction vc 17:44 Drug: NS 0.9% 1000 ml Route: IV; Rate: 1 bolus; Site: left antecubital; vc 17:44 Drug: Tylenol 1000 mg Route: PO; vc 19:22 Drug: Zofran (Ondansetron) 4 mg Route: IVP; Site: left antecubital; vc 20:00 Follow up: Response: No adverse reaction vc 19:23 Drug: Ibuprofen 800 mg Route: PO; vc 20:00 Follow up: Response: No adverse reaction vc 20:00 Follow up: Response: No adverse reaction vc Disposition: 01/10/20 19:38 Discharged to Home. Impression: Influenza due to other identified influenza virus - influenza B, Nausea and vomiting. - Condition is Stable. - Discharge Instructions: Influenza, Adult, Nausea and Vomiting, Adult. - Prescriptions for Zofran 4 mg Oral Tablet - take 1 tablet by ORAL route every 12 hours As needed; 20 tablet. Tessalon Perles 100 mg Oral Capsule - take 2 capsule by ORAL route every 8 hours As needed; 30 capsule. Tamiflu 75 mg Oral Capsule - take 1 tablet by ORAL route every 12 hours for 5 days; 10 tablet. - Medication Reconciliation Form, Thank You Letter, Antibiotic Education, Prescription Opioid Use form. - Follow up: Private Physician; When: 2 - 3 days; Reason: Worsening of condition. - Problem is new. - Symptoms have improved. Addendum: 01/13/2020 07:24 Co-signature as Attending Physician, Santo Amezquita MD I agree with the assessment and c davis plan of care. Signatures: Dispatcher [employer] EDTN Santo Amezquita MD MD cha Williams, Irene, RN RN Santo Gardner PA PA Betty Bee RN RN vc Corrections: (The following items were deleted from the chart) 01/09 19:55 19:38 01/10/2020 19:38 Discharged to Home. Impression: Influenza due to other vc identified influenza virus - influenza B; Nausea and vomiting. Condition is Stable. Forms are Medication Reconciliation Form, Thank You Letter, Antibiotic Education, Prescription Opioid Use. Follow up: Private Physician; When: 2 - 3 days; Reason: Worsening of condition. Problem is new. Symptoms have improved. cp
--- NOTE | 2020-01-10 19:38 | ER ---
Nurse's Notes [facility] Name: Cris York Age: 24 yrs Sex: Female : 1995 Arrival Date: 01/10/2020 Time: 16:13 Bed 25 Private MD: Diagnosis: Influenza due to other identified influenza virus-influenza B;Nausea and vomiting Presentation: 01/09 16:31 Chief complaint: Patient states: sore throat, SOB, nausea, fever, chills X 2 days, iw started vomiting today , also has dry cough. Coronavirus screen: The patient has NOT traveled to a country currently being monitored by the [facility] within the last 14 days. Proceed with normal triage procedures. The patient has NOT had contact with any known and/or suspected case of coronavirus. Proceed with normal triage procedures. Ebola Screen: Patient negative for fever greater than or equal to 101.5 degrees Fahrenheit, and additional compatible Ebola Virus Disease symptoms Patient denies exposure to infectious person. Patient denies travel to an Ebola-affected area in the 21 days before illness onset. No symptoms or risks identified at this time. 16:31 Method Of Arrival: Ambulatory 16:31 Acuity: JOLENE 3 iw 16:33 Initial Sepsis Screen: Does the patient meet any 2 criteria? No. Patient's initial iw sepsis screen is negative. Does the patient have a suspected source of infection? No. Patient's initial sepsis screen is negative. Risk Assessment: Do you want to hurt yourself or someone else? Patient reports no desire to harm self or others. 22:02 Onset of symptoms was January 08, 2020 at 08:00. vc Triage Assessment: 17:00 General: Appears in no apparent distress. uncomfortable, ill, Behavior is calm, vc cooperative, appropriate for age. Pain: Complains of pain in head and generalized body aches. EENT: Reports pain when swallowing. GI: Reports nausea. 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 - Social history:: Smoking status: Patient reports the use of cigarette tobacco products, denies chronic smoking, but will smoke occasionally. Screenin:00 Abuse screen: Denies threats or abuse. Nutritional screening: No deficits noted. vc Tuberculosis screening: No symptoms or risk factors identified. Fall Risk None identified. Assessment: 16:30 General: Appears in no apparent distress. uncomfortable, ill, Behavior is calm, vc cooperative, appropriate for age. Pain: Complains of pain in head and generalized body aches. 16:30 Neuro: Oriented to person, place, time, situation, Appropriate for age. Cardiovascular: vc Patient's skin is warm and dry. Respiratory: Reports shortness of breath at rest. : No signs and/or symptoms were reported regarding the genitourinary system. EENT: No signs and/or symptoms were reported regarding the EENT system. Derm: Skin temperature is hot. Musculoskeletal: Circulation, motion, and sensation intact. Range of motion: intact in all extremities. 17:30 Reassessment: Patient and/or family updated on plan of care and expected duration. Pain vc level reassessed. Patient is alert, oriented x 3, equal unlabored respirations, skin warm/dry/pink. Patient states symptoms have not improved. 18:30 Reassessment: Patient and/or family updated on plan of care and expected duration. Pain vc level reassessed. Patient is alert, oriented x 3, equal unlabored respirations, skin warm/dry/pink. Patient states symptoms have not improved. 19:30 Reassessment: Patient and/or family updated on plan of care and expected duration. Pain vc level reassessed. Patient is alert, oriented x 3, equal unlabored respirations, skin warm/dry/pink. Patient states feeling better. Patient states symptoms have improved. 19:55 GI: Abdomen is round. vc Vital Signs: 16:30 BP 143 / 77; Pulse 93; Resp 20; Pulse Ox 97% on R/A; vc 16:33 BP 146 / 76; Pulse 94; Resp 18; Temp 99.5(O); Pulse Ox 100% on R/A; Weight 114.31 kg; iw Height 5 ft. 3 in. (160.02 cm); Pain 8/10; 17:15 BP 135 / 76 Supine; Pulse 89; vc 17:17 BP 129 / 75 Sitting; Pulse 100; vc 17:19 BP 139 / 81 Standing; Pulse 125; vc 17:30 BP 153 / 88; Pulse 98; Resp 20; Temp 103(O); Pulse Ox 98% on R/A; vc 18:24 BP 130 / 77; Pulse 94; Resp 18; Temp 100.2(O); Pulse Ox 99% on R/A; mh5 19:30 BP 128 / 67; Pulse 98; Resp 19; Pulse Ox 98% on R/A; vc 16:33 Body Mass Index 44.64 (114.31 kg, 160.02 cm) iw ED Course: 16:13 Patient arrived in ED. ag5 16:24 Santo Montes De Oca PA is PHCP. cp 16:24 Santo Amezquita MD is Attending Physician. cp 16:27 Betty Wang, GHASSAN is Primary Nurse. vc 16:32 Triage completed. iw 16:37 Arm band placed on. iw 16:41 Strep Sent. mh5 16:41 Flu Sent. mh5 16:41 Flu and/or RSV swab sent to lab. Strep swab sent to lab. mh5 17:44 Inserted saline lock: 22 gauge in left antecubital area, using aseptic technique. Blood vc collected. 18:10 X-ray completed. Patient tolerated procedure well. Patient moved back from radiology. mh1 18:25 Patient has correct armband on for positive identification. Placed in gown. Bed in low mh5 position. Call light in reach. Pulse ox on. NIBP on. 19:55 No provider procedures requiring assistance completed. IV discontinued, intact, vc bleeding controlled, No redness/swelling at site. Pressure dressing applied. Administered Medications: 17:14 Drug: Zofran (Ondansetron) 4 mg Route: PO; vc 17:45 Follow up: Response: No adverse reaction vc 17:44 Drug: NS 0.9% 1000 ml Route: IV; Rate: 1 bolus; Site: left antecubital; vc 17:44 Drug: Tylenol 1000 mg Route: PO; vc 19:22 Drug: Zofran (Ondansetron) 4 mg Route: IVP; Site: left antecubital; vc 20:00 Follow up: Response: No adverse reaction vc 19:23 Drug: Ibuprofen 800 mg Route: PO; vc 20:00 Follow up: Response: No adverse reaction vc 20:00 Follow up: Response: No adverse reaction vc Outcome: 19:38 Discharge ordered by . cp 19:55 Patient left the ED. vc 22:01 Discharged to home 22:01 Condition: good 22:01 Discharge instructions given to patient, Instructed on discharge instructions, follow up and referral plans. medication usage, Demonstrated understanding of instructions, follow-up care, medications, Prescriptions given X 3. Signatures: Libra Calvo 1 Kamila Farmer, RN RN Santo Gardner PA PA cp Martinez, Maria 5 Leisa North 5 Betty Wang RN RN
[2020-01-10 19:55] LABS: Urine Blood TRACE (NEG); Urine Glucose NEGATIVE (NEG); Urine Protein NEGATIVE (NEG); Urine Specific Gravity 1.025 (1.005-1.030); Urine pH 8.5 (5.0-7.0)
[2020-01-10 20:03] VITALS: BP 130/77; TEMP 100.2; O2SAT 99
== END 2020-01-10 19:55 | disposition home or self-care (01) ==
LOC: ER 16:12
DX: J10.89 Influenza due to other identified influenza virus with other manifestations (principal); R11.2 Nausea with vomiting, unspecified; F17.210 Nicotine dependence, cigarettes, uncomplicated
CPT/HCPCS: 36415; 71046; 80048; 80076; 81003; 81025; 83690; 85025; 87070; 87081; 87804; 96374; 99284; J2405; J7030

== ENCOUNTER 2020-02-12 13:41 | Emergency (ER) | payer SELFPAY ==
[2020-02-12 16:57] VITALS: BP 107/67; TEMP 97.4; O2SAT 100
== END 2020-02-12 16:40 | disposition home or self-care (01) ==
LOC: ER 13:41
DX: N39.0 Urinary tract infection, site not specified (principal); Z72.0 Tobacco use
CPT/HCPCS: 81003; 81015; 81025; 87077; 87086; 87088; 87186; 99283

== ENCOUNTER 2021-03-06 17:57 | Emergency (ER) | payer SELFPAY ==
--- OUTSIDE RECORDS SUMMARY | 2021-03-06 18:00 | XMS REPORT | Continuity of Care Document ---
:1995 Author Organization [facility] t Address [address] [place] [address] Dr. Doss [address] [place] [id number] Care Team Providers Name Role Phone Unavailable Unavailable Unavailable Problems This patient has no known problems. Allergies, Adverse Reactions, Alerts This patient has no known allergies or adverse reactions. Medications This patient has no known medications. Procedures This patient has no known procedures. Results This patient has no known results.
--- NOTE | 2021-03-06 19:49 | RAD REPORT ---
EXAM DESCRIPTION: Shoulder Right 2 View - 03/06/2021 7:05 pm CLINICAL HISTORY: PAIN COMPARISON: No comparisons TECHNIQUE: Internal and external rotation views of the right shoulder were obtained. FINDINGS: There is no fracture or dislocation. Acromial humeral joint space is normal. No rib or jean g parenchymal abnormality of the upper chest. AC joint and clavicle are normal in appearance. No acut e or suspicious findings. IMPRESSION: Negative two-view right shoulder examination.
--- NOTE | 2021-03-06 19:50 | RAD REPORT ---
EXAM DESCRIPTION: RAD - Hand Right 3 View - 03/06/2021 7:05 pm CLINICAL HISTORY: PAIN COMPARISON: No comparisonsNone. FINDINGS: No fracture is identified. There is no dislocation or periosteal reaction noted. Signific ant soft tissue swelling present over the dorsum of the hand. No air or foreign body in the soft tiss ues. IMPRESSION: Dorsal soft tissue swelling right hand. No air or foreign body.
--- NOTE | 2021-03-06 19:55 | EDPHYS ---
Physician Documentation [facility] Name: Cris York Age: 25 yrs Sex: Female : 1995 Arrival Date: 03/06/2021 Time: 17:58 Bed 2 Private MD: ED Physician Chintan Banerjee Historical: - Allergies: 03/06 18:16 No Known Allergies; ss - Home Meds: 18:16 None [Active]; ss - PMHx: 18:16 None; ss - PSHx: 18:16 Cholecystectomy; Hernia repair; ss - Immunization history:: Adult Immunizations up to date. - Social history:: Smoking status: Patient reports the use of cigarette tobacco products, denies chronic smoking, but will smoke occasionally. Vital Signs: 18:14 BP 128 / 86; Pulse 76; Resp 16; Temp 97.7(TE); Pulse Ox 99% on R/A; Weight 119.75 kg; ss Height 5 ft. 2 in. (157.48 cm); Pain 10/10; 20:31 BP 126 / 70; Pulse 78; Resp 18; Pulse Ox 98% ; ea 18:14 Body Mass Index 48.29 (119.75 kg, 157.48 cm) ss Procedures: 19:54 Splinting: Splint applied to right hand using Orthoglass splint, applied by nurse. jr8 Examined by me, post splint application: neurovascular intact, 2+ distal pulses palpable, brisk capillary refill noted, Patient tolerated well. MDM: 19:13 Patient medically screened. jr8 19:49 Data reviewed: vital signs, nurses notes, radiologic studies, plain films. Data jr8 interpreted: Pulse oximetry: on room air is 99 %. Interpretation: normal. Counseling: I had a detailed discussion with the patient and/or guardian regarding: the historical points, exam findings, and any diagnostic results supporting the discharge/admit diagnosis, radiology results, the need for outpatient follow up, a orthopedic surgeon, to return to the emergency department if symptoms worsen or persist or if there are any questions or concerns that arise at home. 03/06 18:17 Order name: XRAY Shoulder RIGHT 2 view; Complete Time: 19:53 ss 03/06 18:17 Order name: XRAY Hand RIGHT 3 View; Complete Time: 19:53 ss 03/06 19:54 Order name: Volar Wrist Splint; Complete Time: 20:31 jr8 Administered Medications: No medications were administered Disposition: 03/07 07:05 Co-signature as Attending Physician, Chintan Banerjee MD. mh7 Disposition: 03/06/21 19:55 Discharged to Home. Impression: Contusion of right hand. - Condition is Stable. - Discharge Instructions: Hand Contusion. - Medication Reconciliation Form, Thank You Letter, Antibiotic Education, Prescription Opioid Use form. - Follow up: Evan Rodrigez MD; When: 2 - 3 days; Reason: Recheck today's complaints, Continuance of care, Re-evaluation by your physician. - Problem is new. - Symptoms have improved. Signatures: Dispatcher [employer] EDMS Laina Jordan RN RN Sven Davey PA PA jr8 Iris Hallman RN RN ea Holmes, Maurice, MD MD mh7 Corrections: (The following items were deleted from the chart) 03/06 20:31 19:55 03/06/2021 19:55 Discharged to Home. Impression: Contusion of right hand. ea Condition is Stable. Forms are Medication Reconciliation Form, Thank You Letter, Antibiotic Education, Prescription Opioid Use. Follow up: Evan Rodrigez; When: 2 - 3 days; Reason: Recheck today's complaints, Continuance of care, Re-evaluation by your physician. Problem is new. Symptoms have improved. jr8
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
[2021-03-06 20:37] VITALS: TEMP 97.7
[2021-03-06 20:39] VITALS: BP 126/70; O2SAT 98
== END 2021-03-06 20:31 | disposition home or self-care (01) ==
LOC: ER 17:57
DX: S60.221A Contusion of right hand, initial encounter (principal); M25.511 Pain in right shoulder; F17.210 Nicotine dependence, cigarettes, uncomplicated
CPT/HCPCS: 99283

== ENCOUNTER 2021-10-16 13:27 | Emergency (ER) | payer SELFPAY ==
--- OUTSIDE RECORDS SUMMARY | 2021-10-16 13:29 | XMS REPORT | Continuity of Care Document ---
:1995 Author Organization [facility] t Address [address] [place] [address] Dr. Doss [address] [place] [id number] Care Team Providers Name Role Phone Unavailable Unavailable Unavailable Problems This patient has no known problems. Allergies, Adverse Reactions, Alerts This patient has no known allergies or adverse reactions. Medications This patient has no known medications. Procedures This patient has no known procedures. Results This patient has no known results.
[2021-10-16 14:12] LABS: Absolute Lymphocytes (CBC) 1.5 K/uL (0.7-4.9); Basophils % 0.3 % (0-1.3); Hematocrit 41.6 % (36.0-45.0); Lymphocytes % 13.9 % (15.3-44.8); MPV 8.6 fL (7.6-11.3)
--- NOTE | 2021-10-16 14:37 | RAD REPORT ---
EXAM DESCRIPTION: RAD - Chest Single View - 10/16/2021 2:18 pm CLINICAL HISTORY: CHEST PAIN COMPARISON: Chest Pa And Lat (2 Views) dated 01/10/2020; Chest Single View dated 09/08/2019; Chest Pa A nd Lat (2 Views) dated 06/06/2017 FINDINGS: Lines: None. Lungs: No evidence of edema or pneumonia. Pleural: No significant pleural effusions or pneumothorax. Cardiac: The heart size is within normal limits. Bones: No acute fractures. Other: IMPRESSION: No acute cardiopulmonary disease.
[2021-10-16 14:54] LABS: Protime INR 0.95
[2021-10-16 15:01] LABS: ALT/SGPT 30 U/L (12-78); AST/SGOT 17 U/L (15-37); Albumin 3.2 g/dL (3.4-5.0); Alkaline Phosphatase 117 U/L (45-117); BUN Blood Urea Nitrogen 10 mg/dL (7-18); Bicarbonate 26 mmol/L (21-32); Bilirubin Direct 0.2 mg/dL (0-0.2); Glucose Level 88 mg/dL (74-106); NT PRO-BNP 49 pg/mL (<125); Potassium 3.7 mmol/L (3.5-5.1); Protein, Total 7.3 g/dL (6.4-8.2); Sodium Level 141 mmol/L (136-145); Troponin (Emerg Dept Use Only) < 0.02 ng/mL (0.0-0.045)
--- NOTE | 2021-10-16 16:09 | RAD REPORT ---
EXAM DESCRIPTION: CT - Chest For Pe Angio - 10/16/2021 3:54 pm CLINICAL HISTORY: CHEST PAIN COMPARISON: Chest Single View dated 10/16/2021 FINDINGS: Chest Wall: No suspicious thyroid nodules or pathologic lymphadenopathy. Lungs: No acute abnormality. Pleura: No significant effusions or pneumothorax. Mediastinum/mita: No pathologic lymphadenopathy. Pulmonary arteries/Aorta: No filling defect identified. The segmental and subsegmental pulmonary shannon bere are not well evaluated due to motion. No aortic aneurysm. Heart: No significant pericardial effusion. Normal heart size. Upper abdomen: No acute abnormality. Bones: No acute abnormality. All CT scans are performed using dose optimization technique as appropriate and may include automated exposure control or mA/KV adjustment according to patient size. IMPRESSION: Negative for pulmonary embolism. The segmental and subsegmental pulmonary arteries are n ot well evaluated due to motion.
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
--- NOTE | 2021-10-16 17:33 | EDPHYS ---
Physician Documentation [facility] Name: Cris York Age: 26 yrs Sex: Female : 1995 Arrival Date: 10/16/2021 Time: 13:27 Bed 5 Private MD: ED Physician Hawk Bland HPI: 10/16 14:06 This 26 yrs old Female presents to ER via Wheelchair with complaints of Chest pm1 Tightness, Arm Problem - tingling. 14:06 The patient or guardian reports chest pain that is located primarily in the mid-sternal pm1 area. The pain radiates to the left shoulder. 14:06 Associated signs and symptoms: Pertinent negatives: abdominal pain, cough, dizziness, pm1 headache, nausea, shortness of breath, vomiting. The chest pain is described as sharp. Duration: The patient or guardian reports a single episode, that is still ongoing. Modifying factors: The symptoms are alleviated by nothing. the symptoms are aggravated by deep breath, palpation of area. Severity of pain: in the emergency department the pain is unchanged. The patient has not experienced similar symptoms in the past. The patient has not recently seen a physician. 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 - Social history:: Smoking status: Patient denies any tobacco usage or history of. ROS: 14:06 Constitutional: Negative for fever, chills, and weight loss. pm1 14:06 Respiratory: Negative for shortness of breath, cough, wheezing, and pleuritic chest pain, Abdomen/GI: Negative for abdominal pain, nausea, vomiting, diarrhea, and constipation, MS/Extremity: Negative for injury and deformity, Skin: Negative for injury, rash, and discoloration. 14:06 Neuro: Negative for headache, weakness, numbness, tingling, and seizure. 14:06 Cardiovascular: Positive for chest pain, Negative for edema, palpitations. 14:06 All other systems are negative. Exam: 14:06 Constitutional: This is a well developed, well nourished patient who is awake, alert, pm1 and in no acute distress. Head/Face: Normocephalic, atraumatic. 14:06 Back: No spinal tenderness. No costovertebral tenderness. Full range of motion. Skin: Warm, dry with normal turgor. Normal color with no rashes, no lesions, and no evidence of cellulitis. MS/ Extremity: Pulses equal, no cyanosis. Neurovascular intact. Full, normal range of motion. 14:06 Eyes: Exam is negative for acute changes, Conjunctiva: no acute changes, no injection, Sclera: no acute changes, icterus, is not appreciated. 14:06 ENT: Exam is negative for acute changes, Mouth: no acute changes, Lips: normal, moist, Oral mucosa: normal, pink and intact, moist. 14:06 Cardiovascular: Exam negative for acute changes, Rate: normal, Rhythm: regular, Pulses: no pulse deficits are appreciated, Heart sounds: normal, normal S1and S2, Edema: is not appreciated. 14:06 Respiratory: Exam negative for acute changes, respiratory distress, shortness of breath, Breath sounds: are clear throughout. 14:06 Abdomen/GI: Exam negative for acute changes, Inspection: abdomen appears normal, Palpation: abdomen is soft and non-tender, in all quadrants. 14:06 Neuro: Exam negative for acute changes, Orientation: is normal, Mentation: is normal, Motor: is normal, moves all fours. 14:06 Chest/axilla: Palpation: tenderness, that is moderate, of the anterior aspect of left pm1 upper chest and mid-sternal area, that totally reproduces the patient's complaints. 15:34 Musculoskeletal/extremity: Extremities: noted in the right calf: tenderness, There is pm1 no evidence of swelling. Vital Signs: 13:41 BP 128 / 99; Pulse 90; Resp 16; Temp 98.4(O); Pulse Ox 100% ; Weight 122.47 kg; Height vg1 5 ft. 3 in. (160.02 cm); Pain 8/10; 14:24 BP 118 / 82; Pulse 80; Resp 16; Pulse Ox 98% ; bp 16:07 BP 127 / 81; Pulse 84; Resp 16; Pulse Ox 100% ; bp 17:36 BP 134 / 67; Pulse 73; Resp 16; Temp 98; Pulse Ox 100% ; bp 13:41 Body Mass Index 47.83 (122.47 kg, 160.02 cm) vg1 MDM: 13:36 Patient medically screened. pm1 14:48 Data reviewed: vital signs. Data interpreted: Pulse oximetry: on room air is 98 %. pm1 Interpretation: normal. 17:30 Refusal of service: The patient/guardian displays adequate decision making capability pm1 and despite a detailed discussion of alternatives, benefits, risks, and consequences refuses: Repeat troponin and results of U/S lower extremity. Patient wants to go home now. 17:30 Counseling: I had a detailed discussion with the patient and/or guardian regarding: the pm1 historical points, exam findings, and any diagnostic results supporting the discharge/admit diagnosis, lab results, radiology results, the need for outpatient follow up, a nurses medical assistants phlebotomists, a family practitioner, to return to the emergency department if symptoms worsen or persist or if there are any questions or concerns that arise at home. 10/16 13:40 Order name: Basic Metabolic Panel pm1 10/16 13:40 Order name: CBC with Diff pm1 10/16 13:40 Order name: LFT's; Complete Time: 15:10 pm1 10/16 13:40 Order name: Magnesium; Complete Time: 15:10 pm1 10/16 13:40 Order name: NT PRO-BNP; Complete Time: 15:10 pm1 10/16 13:40 Order name: PT-INR; Complete Time: 15:32 pm1 10/16 13:40 Order name: Troponin (emerg Dept Use Only); Complete Time: 15:10 pm1 10/16 13:40 Order name: XRAY Chest (1 view); Complete Time: 14:38 pm1 10/16 13:40 Order name: D-Dimer; Complete Time: 15:32 pm1 10/16 13:41 Order name: Basic Metabolic Panel; Complete Time: 15:10 EDMS 10/16 13:41 Order name: CBC with Automated Diff; Complete Time: 14:36 EDMS 10/16 15:22 Order name: CT Chest For PE Angio; Complete Time: 16:28 pm1 10/16 15:33 Order name: Extrem Venous W Compression Tim US pm1 10/16 13:40 Order name: EKG; Complete Time: 13:41 pm1 10/16 13:40 Order name: Cardiac monitoring; Complete Time: 14:11 pm1 10/16 13:40 Order name: EKG - Nurse/Tech; Complete Time: 13:47 pm1 10/16 13:40 Order name: IV Saline Lock; Complete Time: 14:20 pm1 10/16 13:40 Order name: Labs collected and sent; Complete Time: 14:20 pm1 10/16 13:40 Order name: O2 Per Protocol; Complete Time: 14:10 pm1 10/16 13:40 Order name: O2 Sat Monitoring; Complete Time: 14:10 pm1 10/16 14:11 Order name: Labs - recollect needed: recollect all the blood; Complete Time: 14:24 eb Administered Medications: No medications were administered Disposition: 10/17 07:08 Co-signature as Attending Physician, Hawk Bland MD PA/CERTIFIED PEDIATRIC NURSE PRACTITIONER's history reviewed, ma2 patient interviewed, and examined. I agree with assessment and care plan and confirm the diagnosis (es) above. Disposition Summary: 10/16/21 17:32 Discharge Ordered Location: Home pm1 Problem: new pm1 Symptoms: have improved pm1 Condition: Stable pm1 Diagnosis - Chest pain, unspecified pm1 Followup: pm1 - With: Emergency Department - When: As needed - Reason: Worsening of condition Followup: pm1 - With: Private Physician - When: 2 - 3 days - Reason: Recheck today's complaints, Continuance of care, Re-evaluation by your physician Discharge Instructions: - Discharge Summary Sheet pm1 - Nonspecific Chest Pain, Adult pm1 Forms: - Medication Reconciliation Form pm1 - Thank You Letter pm1 - Antibiotic Education pm1 - Prescription Opioid Use pm1 Signatures: Dispatcher [employer] Marshall Vargas NP CERTIFIED PEDIATRIC NURSE PRACTITIONER pm1 Hawk Bland MD MD ma2 Elisa Garcia Victoria, RN RN vg1
--- NOTE | 2021-10-16 17:39 | RAD REPORT ---
EXAM DESCRIPTION: US - Extrem Venous W Compress Tim - 10/16/2021 5:16 pm CLINICAL HISTORY: Right knee pain COMPARISON: None. TECHNIQUE: Real-time sonographic evaluation of the bilateral lower extremity deep venous systems was performed. FINDINGS: Normal compressibility, flow augmentation, phasic flow and spontaneous flow is identified in both the left and right lower extremity deep venous systems. No intraluminal filling defects seen. IMPRESSION: No DVT in either lower extremity.
[2021-10-16 17:59] VITALS: O2SAT 100
[2021-10-16 18:00] VITALS: BP 134/67; TEMP 98
== END 2021-10-16 17:39 | disposition home or self-care (01) ==
LOC: ER 13:27
DX: R07.9 Chest pain, unspecified (principal)
CPT/HCPCS: 36415; 71045; 71275; 80048; 80076; 83735; 83880; 84484; 85025; 85379; 85610; 93005; 93970; 99284; Q9967

== ENCOUNTER 2021-10-21 21:47 | Emergency (ER) | payer SELFPAY ==
--- OUTSIDE RECORDS SUMMARY | 2021-10-21 21:50 | XMS REPORT | Continuity of Care Document ---
:1995 Author Organization [facility] t Address [address] [place] [address] Dr. Doss [address] [place] [id number] Care Team Providers Name Role Phone Unavailable Unavailable Unavailable Problems This patient has no known problems. Allergies, Adverse Reactions, Alerts This patient has no known allergies or adverse reactions. Medications This patient has no known medications. Procedures This patient has no known procedures. Results This patient has no known results.
[2021-10-21 23:30] LABS: Urine Blood 3+ (Negative); Urine Glucose Negative (Negative); Urine Protein Negative (Negative); Urine Specific Gravity >=1.030 (1.005-1.030)
[2021-10-21] MEDS ORDERED: MORPHINE 4 MG/ML SYR ONE (23:35)
[2021-10-21] MEDS ORDERED: ONDANSETRON 4 MG/2 ML VIAL ONE (23:35)
[2021-10-21] MEDS ORDERED: NA CHLORIDE 0.9% 1,000 ML ONE (23:36)
[2021-10-21 23:55] LABS: Absolute Lymphocytes (CBC) 2.8 K/uL (0.7-4.9); Basophils % 0.6 % (0-1.3); Hematocrit 39.6 % (36.0-45.0); Lymphocytes % 33.5 % (15.3-44.8); RBC Red Blood Cell Count 4.54 M/uL (3.86-4.86)
[2021-10-22 00:07] LABS: Albumin 3.3 g/dL (3.4-5.0); Bilirubin Direct 0.1 mg/dL (0-0.2); Bilirubin Total 0.5 mg/dL (0.2-1.0); Potassium 3.5 mmol/L (3.5-5.1); Protein, Total 7.6 g/dL (6.4-8.2)
[2021-10-22 00:16] LABS: Urine Bacteria >50 /HPF (<20); Urine Mucus 2+ /HPF (NONE SEEN)
[2021-10-22] MEDS ORDERED: CEFTRIAXONE 1000 MG/VIAL ONE (01:55)
--- NOTE | 2021-10-22 01:55 | EDPHYS ---
Physician Documentation [facility] Name: Cris York Age: 26 yrs Sex: Female : 1995 Arrival Date: 10/21/2021 Time: 21:49 Bed 4 Private MD: ED Physician Galindo Kapoor HPI: 10/21 23:35 This 26 yrs old Female presents to ER via Ambulatory with complaints of Back cp Pain. 23:35 The patient presents with pain that is acute, with no known mechanism of injury. The cp symptoms are located in the right mid back. 23:35 Onset: The symptoms/episode began/occurred today, about noon today. cp 23:35 The pain does not radiate. Associated signs and symptoms: Pertinent positives: right cp side abdominal pain, Pertinent negatives: dysuria, fever, incontinence, numbness, leg pain. 23:35 The problem was sustained from unknown cause. Modifying factors: the patient symptoms cp are aggravated by movement. Severity of symptoms: in the emergency department the symptoms are unchanged, despite home interventions. 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 - Social history:: Smoking status: Patient reports the use of cigarette tobacco products, smokes one pack cigarettes per day. ROS: 23:40 Constitutional: Negative for body aches, chills, fever, poor PO intake. cp 23:40 Eyes: Negative for injury, pain, redness, and discharge. cp 23:40 ENT: Negative for ear pain, sore throat, difficulty swallowing, difficulty handling secretions. 23:40 Cardiovascular: Negative for chest pain, edema, palpitations. 23:40 Respiratory: Negative for cough, shortness of breath, wheezing. 23:40 Abdomen/GI: Positive for abdominal pain, of the mid right side of abdomen, Negative for nausea, vomiting, and diarrhea, black/tarry stool, rectal bleeding, bowel incontinence. 23:40 Back: Negative for pain at rest, pain with movement. 23:40 : Positive for difficulty urinating, bladder incontinence vaginal bleeding, Negative for urinary symptoms. 23:40 Skin: Negative for rash. 23:40 Neuro: Negative for altered mental status, dizziness, numbness, weakness. 23:40 All other systems are negative. Exam: 23:45 Constitutional: The patient appears in no acute distress, alert, awake, non-toxic, well cp developed, well nourished, obese. 23:45 Head/Face: Normocephalic, atraumatic. cp 23:45 Eyes: Periorbital structures: appear normal, Conjunctiva: normal, no exudate, no injection, Sclera: no appreciated abnormality, Lids and lashes: appear normal, bilaterally. 23:45 ENT: External ear(s): are unremarkable, Nose: is normal, Mouth: Lips: moist, Oral mucosa: pink and intact, moist, Posterior pharynx: Airway: no evidence of obstruction, patent. 23:45 Chest/axilla: Inspection: normal. 23:45 Cardiovascular: Rate: normal, Rhythm: regular, Edema: is not appreciated, JVD: is not appreciated. 23:45 Respiratory: the patient does not display signs of respiratory distress, Respirations: normal, no use of accessory muscles, no retractions, labored breathing, is not present, Breath sounds: are clear throughout, no decreased breath sounds. 23:45 Abdomen/GI: Inspection: obese Bowel sounds: active, all quadrants, Palpation: soft, in all quadrants, mild abdominal tenderness, in the right upper quadrant and right lower quadrant, rebound tenderness, is not appreciated, involuntary guarding, is not appreciated. 23:45 Back: pain, that is moderate, of the right mid back, ROM is painful, with all movement, Straight leg raises: of both lower extremities does not illicit pain. 23:45 Skin: no rash present. 23:45 Neuro: Orientation: to person, place \T\ time. Mentation: is normal, Motor: moves all fours, strength is normal, Sensation: is normal. Vital Signs: 22:23 BP 148 / 94; Pulse 79; Resp 16; Temp 97.1; Pulse Ox 100% ; Weight 124.74 kg; Height 5 jh5 ft. 3 in. (160.02 cm); Pain 10/10; 23:12 BP 138 / 98; Pulse 73; Resp 18; Pulse Ox 100% on R/A; Pain 9/10; tw5 12/ 00:31 BP 109 / 53; Pulse 72; Resp 18 S; Pulse Ox 100% on R/A; as6 02:09 BP 117 / 71; Pulse 76; Resp 16 S; Pulse Ox 99% on R/A; as6 10/21 22:23 Body Mass Index 48.71 (124.74 kg, 160.02 cm) jh5 MDM: 10/21 23:23 Patient medically screened. cp 10/22 00:00 Differential diagnosis: Obesity Ureterolithiasis vertebral fracture, kidney stone, cp pancreatitis, choledocholithiasis, UTI, pyelonephritis. 01:55 Data reviewed: vital signs, nurses notes, lab test result(s), radiologic studies, CT cp scan. 01:55 Counseling: I had a detailed discussion with the patient and/or guardian regarding: the cp historical points, exam findings, and any diagnostic results supporting the discharge/admit diagnosis, lab results, radiology results, the need for outpatient follow up, an OB/Gyne specialist, to return to the emergency department if symptoms worsen or persist or if there are any questions or concerns that arise at home. Response to treatment: VSS. Pain markedly improved. Will discharge to home for continued monitoring. 10/21 23:15 Order name: Urine Microscopic Only; Complete Time: 01:32 cp 10/22 01:32 Interpretation: Normal except: UWBC 5-10; URBC 5-10; UBACT >50; SQEPI 5-10. cp 10/21 23:18 Order name: Basic Metabolic Panel oe 10/21 23:18 Order name: CBC with Diff; Complete Time: 01:32 oe 10/22 01:32 Interpretation: Reviewed. cp 10/21 23:18 Order name: Hepatic Function oe 10/21 23:18 Order name: Lipase; Complete Time: 01:32 oe 10/21 23:18 Order name: Basic Metabolic Panel; Complete Time: 01:32 EDMS 10/22 01:32 Interpretation: Normal except: GLUC 123; GFR 81. cp 10/21 23:18 Order name: Liver (Hepatic) Function; Complete Time: 01:32 EDMS 10/22 01:32 Interpretation: Normal except: ALK 145; ALB 3.3; GLOB 4.3; A/G 0.8. cp 10/21 23:29 Order name: Urine Dipstick-Ancillary; Complete Time: 01:32 EDMS 10/22 01:32 Interpretation: Normal except: UBLD 3+. cp 10/21 23:30 Order name: Urine --Ancillary (enter results) cs9 10/21 23:31 Order name: CT Stone Protocol cp 10/21 23:31 Order name: Urine --Ancillary; Complete Time: 01:32 EDMS 10/22 00:17 Order name: Urine Culture EDMS 10/21 23:15 Order name: Urine Dipstick-Ancillary (obtain specimen); Complete Time: 23:32 cp 10/21 23:15 Order name: Urine Test (obtain specimen); Complete Time: 23:32 cp 10/21 23:18 Order name: IV Saline Lock; Complete Time: 23:32 oe 10/21 23:18 Order name: Labs collected and sent; Complete Time: 23:32 oe Administered Medications: 10/21 23:40 Drug: NS 0.9% 1000 ml Route: IV; Rate: 1 bolus; Site: right antecubital; tw5 10/22 02:27 Follow up: Response: No adverse reaction; IV Status: Completed infusion; IV Intake: as6 1000ml 10/21 23:41 Drug: morphine 4 mg Route: IVP; Site: right antecubital; tw10/22 02:06 Follow up: Response: No adverse reaction; RASS: Alert and Calm (0) as6 10/21 23:41 Drug: Zofran (Ondansetron) 4 mg Route: IVP; Site: right antecubital; tw10/22 02:06 Follow up: Response: No adverse reaction as6 02:05 Drug: Lidoderm Patch 5 % (700 mg/patch) 1 patches Route: Topical; Site: affected area; as6 02:06 Follow up: Response: No adverse reaction as6 02:06 Drug: Rocephin - (cefTRIAXone) 1 grams Route: IVPB; Infused Over: 30 mins; Site: right as6 antecubital; 02:27 Follow up: Response: No adverse reaction; IV Status: Completed infusion; IV Intake: [id number] 02:06 Drug: Ketorolac 30 mg Route: IVP; Site: right antecubital; as6 02:06 Follow up: Response: No adverse reaction as6 Disposition Summary: 10/22/21 01:55 Discharge Ordered Location: Home cp Problem: new cp Symptoms: have improved cp Condition: Stable cp Diagnosis - Pyelonephritis acute cp - Other ovarian cysts - right cp Followup: cp - With: Breanna Hernandez MD - When: 1 week - Reason: ovarian cyst Discharge Instructions: - Discharge Summary Sheet cp - Ovarian Cyst cp - Pyelonephritis, Adult cp Forms: - Medication Reconciliation Form cp - Thank You Letter cp - Antibiotic Education cp - Prescription Opioid Use cp Prescriptions: - Zofran 4 mg Oral Tablet - take 1 tablet by ORAL route every 12 hours As needed; 20 tablet; Refills: 0, cp Product Selection Permitted - Naprosyn 500 mg Oral Tablet - take 1 tablet by ORAL route 2 times per day take with food; 20 tablet; Refills: cp 0, Product Selection Permitted - Bactrim DS 800-160 mg Oral Tablet - take 1 tablet by ORAL route every 12 hours for 10 days; 20 tablet; Refills: 0, cp Product Selection Permitted Signatures: Dispatcher [employer] EDMS Santo Montes De Oca PA PA cp Ricardo Patel Tiffany tw5 Tootie Holbrook, RN RN jh5 José Miguel Andrew RN RN as6
--- NOTE | 2021-10-22 01:55 | ER ---
Nurse's Notes [facility] Name: Cris York Age: 26 yrs Sex: Female : 1995 Arrival Date: 10/21/2021 Time: 21:49 Bed 4 Private MD: Diagnosis: Pyelonephritis acute;Other ovarian cysts-right Presentation: 10/21 22:23 Chief complaint: Patient states: Patient states her right lower back has been hurting 5 since 12 noon today; she denies any trauma. Coronavirus screen: Vaccine status: Patient reports receiving the 2nd dose of the covid vaccine. Client denies travel out of the [place] in the last 14 days. Coronavirus screen: At this time, the client does not indicate any symptoms associated with coronavirus-19. Ebola Screen: Patient negative for fever greater than or equal to 101.5 degrees Fahrenheit, and additional compatible Ebola Virus Disease symptoms Patient denies exposure to infectious person. Patient denies travel to an Ebola-affected area in the 21 days before illness onset. Initial Sepsis Screen: Does the patient meet any 2 criteria? No. Patient's initial sepsis screen is negative. Does the patient have a suspected source of infection? No. Patient's initial sepsis screen is negative. Risk Assessment: Do you want to hurt yourself or someone else? Patient reports no desire to harm self or others. Onset of symptoms was October 21, 2021. 22:23 Method Of Arrival: Ambulatory [facility] 22:23 Acuity: JOLENE 3 [facility] Triage Assessment: 22:27 General: Appears uncomfortable, obese, well groomed, well developed, well nourished, [facility] Behavior is calm, cooperative, appropriate for age. Pain: Complains of pain in right mid back and right low back. 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 - Social history:: Smoking status: Patient reports the use of cigarette tobacco products, smokes one pack cigarettes per day. Screenin:28 Abuse screen: Denies threats or abuse. Denies injuries from another. Nutritional 5 screening: No deficits noted. Tuberculosis screening: No symptoms or risk factors identified. Fall Risk None identified. Assessment: 23:12 General: Behavior is calm, cooperative, appropriate for age, Reports ". Pain: Complains tw5 of pain in right mid back Pain radiates to left mid back Quality of pain is described as sharp, shooting, stabbing, Pain began " It started at 12, but the pain is getting worse". Neuro: Level of Consciousness is awake, alert, obeys commands, Oriented to person, place, time, situation. Cardiovascular: Heart tones S1 S2 present. Respiratory: Airway is patent Trachea midline Respiratory effort is even, unlabored, Breath sounds are clear bilaterally. : Urine is clear. Derm: Skin is intact, is healthy with good turgor. 23:42 GI: Bowel sounds present X 4 quads. Abdomen is tender to palpation in right upper tw5 quadrant and right lower quadrant. 10/22 00:31 Reassessment: Patient states feeling better. as6 Vital Signs: 10/21 22:23 BP 148 / 94; Pulse 79; Resp 16; Temp 97.1; Pulse Ox 100% ; Weight 124.74 kg; Height 5 5 ft. 3 in. (160.02 cm); Pain 10/10; 23:12 BP 138 / 98; Pulse 73; Resp 18; Pulse Ox 100% on R/A; Pain 9/10; tw5 17 00:31 BP 109 / 53; Pulse 72; Resp 18 S; Pulse Ox 100% on R/A; as6 02:09 BP 117 / 71; Pulse 76; Resp 16 S; Pulse Ox 99% on R/A; as6 16 22:23 Body Mass Index 48.71 (124.74 kg, 160.02 cm) 5 ED Course: 10/21 21:49 Patient arrived in ED. kc5 22:27 Triage completed. 5 23:08 José Miguel Andrew, GHASSAN is Primary Nurse. as6 23:12 Awaiting lab results, Awaiting CT Scan. tw5 23:12 Patient has correct armband on for positive identification. Placed in gown. Bed in low tw5 position. Call light in reach. Side rails up X 1. Pulse ox on. NIBP on. Door closed. Noise minimized. Lights dimmed. Warm blanket given. Verbal reassurance given. 23:12 Initial lab(s) drawn, by me, sent to lab. Urine collected: clean catch specimen, clear. Inserted saline lock: 20 gauge in right antecubital area, using aseptic technique. Blood collected. 23:15 Santo Montes De Oca PA is PHCP. cp 23:15 Galindo Kapoor MD is Attending Physician. cp 23:32 Urine --Ancillary (enter results) Sent. tw 23:32 Basic Metabolic Panel Sent. tw 23:32 Liver (Hepatic) Function Sent. tw 23:32 Basic Metabolic Panel Sent. tw 23:32 Hepatic Function Sent. : CBC with Diff Sent. : Lipase Sent. : Urine Microscopic Only Sent. 23:32 Urine --Ancillary Sent. 10/22 00:39 CT Stone Protocol In Process Unspecified. EDMS 01:54 Breanna Hernandez MD is Referral Physician. cp 02:09 Arm band placed on. as6 02:26 No provider procedures requiring assistance completed. IV discontinued, intact, as6 bleeding controlled, No redness/swelling at site. Pressure dressing applied. Administered Medications: 10/21 23:40 Drug: NS 0.9% 1000 ml Route: IV; Rate: 1 bolus; Site: right antecubital; 10/22 02:27 Follow up: Response: No adverse reaction; IV Status: Completed infusion; IV Intake: as6 1000ml 10/21 23:41 Drug: morphine 4 mg Route: IVP; Site: right antecubital; 10/22 02:06 Follow up: Response: No adverse reaction; RASS: Alert and Calm (0) as10/21 23:41 Drug: Zofran (Ondansetron) 4 mg Route: IVP; Site: right antecubital; 10/22 02:06 Follow up: Response: No adverse reaction as 02:05 Drug: Lidoderm Patch 5 % (700 mg/patch) 1 patches Route: Topical; Site: affected area; as6 02:06 Follow up: Response: No adverse reaction as6 02:06 Drug: Rocephin - (cefTRIAXone) 1 grams Route: IVPB; Infused Over: 30 mins; Site: right as6 antecubital; 02:27 Follow up: Response: No adverse reaction; IV Status: Completed infusion; IV Intake: [id number] 02:06 Drug: Ketorolac 30 mg Route: IVP; Site: right antecubital; as6 02:06 Follow up: Response: No adverse reaction as6 Intake: 02: IV: 50ml; Total: 50ml. as6 02:27 IV: 1000ml; Total: 1050ml. as6 Outcome: 01:55 Discharge ordered by MD. cp 02:26 Discharged to home ambulatory. as6 02:26 Condition: stable 02:26 Discharge instructions given to patient, Instructed on discharge instructions, follow up and referral plans. medication usage, Demonstrated understanding of instructions, follow-up care, medications, Prescriptions given X 3. 02:27 Patient left the ED. as6 Signatures: Dispatcher [employer] EDMS Santo Montes De Oca PA PA cp Wood, Tiffany tw5 Tootie Holbrook RN RN jh5 José Miguel Andrew RN RN as6 Sasha Miller kc5
[2021-10-22] MEDS ORDERED: KETOROLAC 30 MG/ML INJ ONE (01:56)
[2021-10-22] MEDS ORDERED: LIDOCAINE 4% PATCH ONE (01:56)
[2021-10-22] MEDS ORDERED: NA CHLORIDE 0.9% 50 ML ONE (01:56)
[2021-10-22 02:45] VITALS: TEMP 97.1
[2021-10-22 02:49] VITALS: BP 117/71; O2SAT 99
--- NOTE | 2021-10-24 12:03 | RAD REPORT ---
EXAM DESCRIPTION: CT ABDOMEN PELVIS WITHOUT IV CONTRAST Exam date: 10/21/2021 11:31 PM MAINFRAME ANALYST COMPARISON: CT abdomen pelvis March 29, 2017 Indication: Right mid back pain TECHNIQUE: Multiple helical axial images were obtained through the abdomen and pelvis without intrav enous contrast. Sagittal and coronal reformatted images are reviewed as well. All CT scans at this facility use dose modulation, iterative reconstruction, and/or weight-based dosi ng when appropriate to reduce radiation dose to as low as reasonably achievable. FINDINGS: Lung bases: Unremarkable. Liver: Homogenous attenuation is demonstrated. Gallbladder/biliary: Gallbladder is surgically absent. No significant biliary ductal dilatation. Pancreas: Unremarkable. Spleen: Unremarkable. Adrenals: Unremarkable. Kidneys and ureters: No evidence of renal or ureteral stones. No hydronephrosis. Bladder: Unremarkable. Pelvic organs: There is a 5 cm cyst in the right ovary. Bowel: No evidence of bowel obstruction. No bowel wall thickening. Appendix appears unremarkable. Peritoneum: No free air. No significant free fluid. Lymph nodes: Unremarkable. Vasculature: Unremarkable. Soft tissues: Unremarkable. Bones: Unremarkable. IMPRESSION: 1. No evidence for an acute process within the abdomen or pelvis. 2. Right ovarian 5 cm cyst, follow-up ultrasound can be performed as appropriate. Electronically signed by: Srinivasan Sutherland MD 10/22/2021 1:20 AM MAINFRAME ANALYST Due to temporary technical issues with the PACS/Fluency reporting system, reports are being signed by the in house radiologists without review as a courtesy to insure prompt reporting. The interpreting radiologist is fully responsible for the content of the report.
== END 2021-10-22 02:27 | disposition home or self-care (01) ==
LOC: ER 21:47
DX: N10 Acute pyelonephritis (principal); N83.201 Unspecified ovarian cyst, right side
CPT/HCPCS: 36415; 74176; 76377; 80048; 80076; 81003; 81015; 81025; 83690; 85025; 87086; 87088; 96361; 96365; 96375; 99284; J2405; J7030

== ENCOUNTER 2022-02-24 11:19 | Emergency (ER) | payer SELFPAY ==
--- OUTSIDE RECORDS SUMMARY | 2022-02-24 11:22 | XMS REPORT | Continuity of Care Document ---
:1995 Author Organization [facility] t Address [address] [place] [address] Dr. Doss [address] [place] [id number] Care Team Providers Name Role Phone Unavailable Unavailable Unavailable Problems This patient has no known problems. Allergies, Adverse Reactions, Alerts This patient has no known allergies or adverse reactions. Medications This patient has no known medications. Procedures This patient has no known procedures. Results This patient has no known results.
[2022-02-24] MEDS ORDERED: TETANUS & DIPHTHERIA TOX,ADULT 0.5 ML VIAL ONE (12:41)
[2022-02-24] MEDS ORDERED: HYDROCODONE/APAP 5/325 MG TAB ONE (12:41)
--- NOTE | 2022-02-24 14:25 | RAD REPORT ---
EXAM DESCRIPTION: RAD - Foot Right 3 View - 02/24/2022 2:09 pm CLINICAL HISTORY: puncture wound COMPARISON: No comparisons FINDINGS/IMPRESSION: No acute fracture. No malalignment. No significant focal degenerative changes. No radiopaque foreign body.
--- NOTE | 2022-02-24 14:48 | ER ---
Nurse's Notes [facility] Name: Cris York Age: 26 yrs Sex: Female : 1995 Arrival Date: 02/24/2022 Time: 11:29 Bed Treatment Private MD: Diagnosis: Foot Puncture Presentation: 02/24 11:42 Chief complaint: Patient states: "Last night around 1800 I was walking to my car in a ab2 [place] and stepped on a greg nail and had to pull it out. Now my foot hurts, is swollen and I cant walk." Pt c/o right foot pain and nausea. Coronavirus screen: Vaccine status: Patient reports receiving the 2nd dose of the covid vaccine. Client denies travel out of the [place] in the last 14 days. At this time, the client does not indicate any symptoms associated with coronavirus-19. Ebola Screen: Patient negative for fever greater than or equal to 101.5 degrees Fahrenheit, and additional compatible Ebola Virus Disease symptoms Patient denies exposure to infectious person. Patient denies travel to an Ebola-affected area in the 21 days before illness onset. No symptoms or risks identified at this time. Initial Sepsis Screen: Does the patient meet any 2 criteria? No. Patient's initial sepsis screen is negative. Does the patient have a suspected source of infection? No. Patient's initial sepsis screen is negative. Risk Assessment: Do you want to hurt yourself or someone else? Patient reports no desire to harm self or others. Onset of symptoms is unknown. 11:42 Method Of Arrival: Wheelchair ab2 11:42 Acuity: JOLENE 4 ab2 Triage Assessment: 11:44 General: Appears in no apparent distress. uncomfortable, Behavior is calm, cooperative, ab2 appropriate for age. Pain: Complains of pain in right foot. Derm: Reports pain. Musculoskeletal: Reports pain in right foot. Injury Description: Puncture sustained to right foot. Historical: - Allergies: 11:43 No Known Allergies; ab2 - PSHx: 11:43 Cholecystectomy; hernia repair; tubal ligation; ab2 - Immunization history:: Adult Immunizations up to date. - Social history:: Smoking status: Reported history of juuling and/or vaping. Screenin:44 Abuse screen: Denies threats or abuse. Denies injuries from another. Nutritional ld1 screening: No deficits noted. Tuberculosis screening: No symptoms or risk factors identified. Fall Risk None identified. Assessment: 12:44 General: Appears in no apparent distress. comfortable, Behavior is calm, cooperative, ld1 appropriate for age. Pain: Denies pain. Neuro: Level of Consciousness is awake, alert, obeys commands, Oriented to person, place, time, situation. Cardiovascular: Capillary refill < 3 seconds Patient's skin is warm and dry. Respiratory: Airway is patent Respiratory effort is even, unlabored, Respiratory pattern is regular, symmetrical. GI: Abdomen is flat, non-distended. : No signs and/or symptoms were reported regarding the genitourinary system. EENT: No signs and/or symptoms were reported regarding the EENT system. Derm: No signs and/or symptoms reported regarding the dermatologic system. Musculoskeletal: No signs and/or symptoms reported regarding the musculoskeletal system. Vital Signs: 11:42 BP 116 / 84; Pulse 87; Resp 17; Temp 98.1; Pulse Ox 100% on R/A; Weight 116.12 kg; ab2 Height 5 ft. 2 in. (157.48 cm); Pain 10/10; 12:44 Pulse 83; Resp 17; Pulse Ox 100% on R/A; ld1 14:11 BP 119 / 82; Pulse 79; Resp 18; Pulse Ox 100% on R/A; ld1 11:42 Body Mass Index 46.82 (116.12 kg, 157.48 cm) ab2 ED Course: 11:29 Patient arrived in ED. am2 11:43 Triage completed. ab2 11:44 Arm band placed on right wrist. ab2 12:00 Edi Zarate PA is PHCP. jmm 12:00 Hawk Bland MD is Attending Physician. jmm 12:43 Bea Cadena, GHASSAN is Primary Nurse. ld1 12:44 Patient has correct armband on for positive identification. Placed in gown. Bed in low ld1 position. Call light in reach. Side rails up X2. Pulse ox on. NIBP on. Door closed. Noise minimized. Warm blanket given. 12:44 No provider procedures requiring assistance completed. ld1 14:11 Foot Right 3 View XRAY In Process Unspecified. EDMS 14:47 Lonnie Kirkland MD is Referral Physician. [facility] 15:03 Patient did not have IV access during this emergency room visit. ld1 Administered Medications: 12:41 Drug: Tetanus-Diphtheria Toxoid Adult 0.5 ml {Window And Door Installer: Hartman Wright. Exp: ab2 01/15/2024. Lot #: [id number]. } Route: IM; Site: right deltoid; 12:41 Drug: HYDROcodone-acetaminophen 5 mg-325 mg 2 tabs Route: PO; ab2 Outcome: 14:47 Discharge ordered by MD. [facility] 15:03 Discharged to home via wheelchair, with family. ld1 15:03 Condition: stable 15:03 Discharge instructions given to patient, family, Instructed on discharge instructions, follow up and referral plans. medication usage, Demonstrated understanding of instructions, follow-up care, medications, Prescriptions given X 1. 15:03 Patient left the ED. ld1 Signatures: Dispatcher [employer] EDMS Edi Zarate PA PA [facility] Yanet Elizabeth am2 Bea Cadena RN RN ld1 Jose Storey2
--- NOTE | 2022-02-24 14:48 | EDPHYS ---
Physician Documentation [facility] Name: Cris York Age: 26 yrs Sex: Female : 1995 Arrival Date: 02/24/2022 Time: 11:29 Bed Treatment Private MD: ED Physician Hawk Bland HPI: 02/24 12:09 This 26 yrs old Female presents to ER via Wheelchair with complaints of jmm Puncture Wound To Foot. 12:09 The patient presents with an injury, pain. Onset: The symptoms/episode began/occurred jmm acutely. Modifying factors: The symptoms are alleviated by nothing, the symptoms are aggravated by weight bearing. Associated signs and symptoms: Pertinent positives: swelling. Patient complains of swelling to the plantar surface of the right foot. States the nail went through a shoe. Complains of swelling, pain, intermittent episodes o numbness to the foot. Patient is not UTD on tetanus immunization. . Historical: - Allergies: 11:43 No Known Allergies; ab2 - PSHx: 11:43 Cholecystectomy; hernia repair; tubal ligation; ab2 - Immunization history:: Adult Immunizations up to date. - Social history:: Smoking status: Reported history of juuling and/or vaping. ROS: 12:09 Constitutional: Negative for fever, chills, and weight loss, Cardiovascular: Negative jmm for chest pain, palpitations, and edema, Respiratory: Negative for shortness of breath, cough, wheezing, and pleuritic chest pain. 12:09 Back: Negative for injury and pain. 12:09 MS/extremity: Positive for swelling. 12:09 All other systems are negative. Exam: 12:09 Constitutional: This is a well developed, well nourished patient who is awake, alert, jmm and in no acute distress. Head/Face: atraumatic. Eyes: EOMI, no conjunctival erythema appreciated ENT: Moist Mucus Membranes Neck: Trachea midline, Supple Chest/axilla: Normal chest wall appearance and motion. Cardiovascular: Regular rate and rhythm. No edema appreciated Respiratory: Normal respirations, no respiratory distress appreciated Abdomen/GI: Non distended, soft Back: Normal ROM Skin: General appearance color normal 12:09 Musculoskeletal/extremity: mild swelling noted to the plantar surface, ttp, full dorsalis pedis pulse, NVI. 12:09 Skin: Appearance: Color: normal in color. 12:09 Neuro: Orientation: is normal, Mentation: is normal, Memory: is normal. 12:09 Psych: Behavior/mood is pleasant, cooperative. Vital Signs: 11:42 BP 116 / 84; Pulse 87; Resp 17; Temp 98.1; Pulse Ox 100% on R/A; Weight 116.12 kg; ab2 Height 5 ft. 2 in. (157.48 cm); Pain 10/10; 12:44 Pulse 83; Resp 17; Pulse Ox 100% on R/A; ld1 14:11 BP 119 / 82; Pulse 79; Resp 18; Pulse Ox 100% on R/A; ld1 11:42 Body Mass Index 46.82 (116.12 kg, 157.48 cm) ab2 MDM: 12:29 Patient medically screened. [facility] 14:38 Data reviewed: vital signs, nurses notes. Counseling: I had a detailed discussion with [facility] the patient and/or guardian regarding: the historical points, exam findings, and any diagnostic results supporting the discharge/admit diagnosis, the need for outpatient follow up, to return to the emergency department if symptoms worsen or persist or if there are any questions or concerns that arise at home. 14:46 Counseling: I had a detailed discussion with the patient and/or guardian regarding: [facility] radiology results. ED course: Patient is alert and non toxic in appearance in the ED. Will treat with abx due to concerns for Pseudomonas. Patient advised to follow up with surgery for reevaluation. Patient understood and agrees with the plan of care. . 02/24 12:08 Order name: Foot Right 3 View XRAY; Complete Time: 14:30 [facility] 02/24 14:39 Order name: Orthopedic shoe; Complete Time: 15:03 [facility] Administered Medications: 12:41 Drug: Tetanus-Diphtheria Toxoid Adult 0.5 ml {Music Instructor: Phylogy. Exp: ab2 01/15/2024. Lot #: [id number]. } Route: IM; Site: right deltoid; 12:41 Drug: HYDROcodone-acetaminophen 5 mg-325 mg 2 tabs Route: PO; ab2 Disposition: 18:44 Co-signature as Attending Physician, Hawk Bland MD. ma2 Disposition Summary: 02/24/22 14:47 Discharge Ordered Location: Home jmm Condition: Stable jmm Diagnosis - Foot Puncture jmm Followup: jmm - With: Lonnie Kirkland MD - When: 2 - 3 days - Reason: Recheck today's complaints, Continuance of care, Re-evaluation by your physician Discharge Instructions: - Discharge Summary Sheet jmm - Puncture Wound jmm Forms: - Medication Reconciliation Form jmm - Thank You Letter jmm - Antibiotic Education jmm - Prescription Opioid Use jmm Prescriptions: - levofloxacin 750 mg Oral Tablet - take 1 tablet by ORAL route once daily; 10 tablet; Refills: 0, Product jm Selection Permitted Signatures: Dispatcher [employer] EDEdi Serrano PA PA jmm Alzahri, Mohammad, MD MD ma2 Jose Storey2
[2022-02-24 15:11] VITALS: TEMP 98.1; O2SAT 100
[2022-02-24 15:14] VITALS: BP 119/82
== END 2022-02-24 15:03 | disposition home or self-care (01) ==
LOC: ER 11:19
DX: S91.331A Puncture wound without foreign body, right foot, initial encounter (principal); W45.0XXA Nail entering through skin, initial encounter; Y93.89 Activity, other specified; Y92.9 Unspecified place or not applicable; Z23 Encounter for immunization
CPT/HCPCS: 90471; 90714; 99284

== ENCOUNTER 2024-09-27 10:55 | Emergency (ER) | payer SELFPAY ==
[2024-09-27] MEDS ORDERED: MORPHINE 4 MG/ML SYR ONE (11:32)
[2024-09-27] MEDS ORDERED: ONDANSETRON 4 MG/2 ML VIAL ONE (11:32)
[2024-09-27] MEDS ORDERED: NA CHLORIDE 0.9% 500 ML ONE (11:33)
[2024-09-27 11:41] LABS: Absolute Lymphocytes (CBC) 1.2 K/uL (0.7-4.9); Absolute Monocytes 0.7 K/uL (0.1-1.3); Absolute Neutrophil 11.6 K/uL (1.8-8.0); Basophils % 0.3 % (0-1.3); Hematocrit 41.7 % (36.0-45.0); Hemoglobin 13.9 g/dL (12.0-15.0); Lymphocytes % 8.8 % (15.3-44.8); MCH 29.3 pg (27.0-35.0); MCHC 33.3 g/dL (32.0-36.0); MCV 88.2 fL (80-100); MPV 9.3 fL (7.6-11.3); Monocytes % 4.9 % (3.3-12.3); Platelets 253 thou/uL (152-406); RBC Red Blood Cell Count 4.72 M/uL (3.86-4.86); Red Cell Distribution Width 13.3 % (12.1-15.2)
[2024-09-27 11:59] LABS: Albumin 3.5 g/dL (3.4-5.0); Albumin/Globulin Ratio 0.8 (1.1-1.8); Anion Gap 9.7 mEq/L (5.0-15.0); Globulin 4.4 g/dL (2.3-3.5); Potassium 3.7 mEq/L (3.5-5.1); Protein, Total 7.9 g/dL (6.4-8.2)
[2024-09-27 12:35] LABS: Blood Morphology Comment NOT SEEN (NOT SEEN); Platelet Estimate ADEQ; Platelets, Giant NOTED; White Blood Cell Scan OK (OK)
[2024-09-27 12:45] LABS: Specific Gravity 1.026 (1.005-1.030)
[2024-09-27 12:47] LABS: Specific Gravity 1.026 (1.005-1.030); Sqamous Epithelial <5 /HPF (None Seen); Urine Bacteria None Seen /HPF (<20); Urine Bilirubin NEGATIVE (Negative); Urine Blood 2+ (Negative); Urine Clarity Turbid (Clear); Urine Color Yellow (Yellow); Urine Culture Reflex Order NOT NEEDED; Urine Glucose NEGATIVE (Negative); Urine Ketones NEGATIVE (Negative); Urine Microscopic Reflex YN ORDER UMIC; Urine Mucus Slight /HPF (None Seen); Urine Nitrite NEGATIVE (Negative); Urine Protein NEGATIVE (Negative); Urine Urobilinogen Normal (Normal); Urine WBC <5 /HPF (<5)
--- NOTE | 2024-09-27 13:18 | RAD REPORT ---
EXAMINATION: CT ABDOMEN AND PELVIS WITH CONTRAST CLINICAL INDICATION: Abdominal pain TECHNIQUE: CT abdomen and pelvis was performed, after the administration of 100 cc Isovue-300.. Sagit sindi and coronal reconstructions were obtained. One or more of the following dose reduction techniques were used: Automated exposure control, adjustment of the mA and kV according to patient si ze, and iterative reconstruction. Unless otherwise specified, incidental findings do not require dedicated imaging follow-up. LE1977. Oral contrast was not given which limits evaluation of bowel and appendix. COMPARISON: 2020 FINDINGS: Liver, spleen, pancreas, adrenals and kidneys appear unremarkable Cholecystectomy No evidence of diverticulitis. Normal appendix. 6.7 cm cystic mass right adnexa. No significant free fluid. 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 : IMPRESSION: 6.7 cm cystic mass right adnexa. It has enlarged from prior exam. Pelvic ultrasound recommended
--- NOTE | 2024-09-27 14:28 | RAD REPORT ---
EXAMINATION: Transvaginal Study Probe CLINICAL INDICATION: Pelvic pain TECHNIQUE: Real-time ultrasonography of the pelvis was performed transvaginally. Color and spectral D oppler evaluation of the ovaries was performed. COMPARISON: CT September 27, 2024 FINDINGS: The uterus measures 9 x 5 x 5 cm. 1.3 cm isoechoic structure uterine body has the appearance of a sub serosal fibroid. The endometrial stripe measures 1.5 cm. 5.7 cm simple appearing cyst right ovary. Blood flow to the right ovary Left ovary normal in size and echotexture. Right and left adnexa unremarkable No significant free fluid IMPRESSION: 5.7 cm simple appearing right ovarian cyst..Recommend follow-up US in 3-6 months.
--- NOTE | 2024-09-27 14:45 | ER ---
Nurse's Notes [facility] Name: Cris Holt Age: 29 yrs Sex: Female : 1995 Arrival Date: 09/27/2024 Time: 10:55 Bed 5 Private MD: Diagnosis: Other ovarian cysts Presentation: 09/27 11:19 Chief complaint: Patient states: abd pain that began yesterday. +nausea and dizziness. ss Coronavirus screen: Client denies travel out of the [place] in the last 14 days. Ebola Screen: Patient denies exposure to infectious person. Patient denies travel to an Ebola-affected area in the 21 days before illness onset. Initial Sepsis Screen: Does the patient meet any 2 criteria? No. Patient's initial sepsis screen is negative. Does the patient have a suspected source of infection? No. Patient's initial sepsis screen is negative. Risk Assessment: Do you want to hurt yourself or someone else? Patient reports no desire to harm self or others. Onset of symptoms was September 26, 2024. 11:19 Method Of Arrival: Ambulatory ss 11:19 Acuity: JOLENE 3 ss Historical: - Allergies: 11:20 No Known Allergies; ss - Home Meds: 11:20 None [Active]; ss - PSHx: 11:20 Cholecystectomy; hernia repair; tubal ligation; ss Vital Signs: 11:39 BP 131 / 96; Pulse 94; Resp 16; Temp 99.1(TE); Pulse Ox 100% ; Weight 116.57 kg; Height jb4 5 ft. 4 in. ; 14:22 BP 120 / 72; Pulse 75; Resp 16; Temp 98.4(TE); Pulse Ox 97% on R/A; jb4 11:39 Body Mass Index 44.11 (116.57 kg, 162.56 cm) jb4 ED Course: 11:00 Patient arrived in ED. mg5 11:09 Marco Roberto MD is Attending Physician. ec2 11:20 Triage completed. ss 11:20 Arm band placed on right wrist. ss 11:38 CBC with Diff Sent. jb4 11:38 CMP Sent. jb4 11:38 Lipase Sent. jb4 11:38 Test, Urine Sent. jb4 13:10 CT Abd/Pelvis - IV Contrast Only In Process Unspecified. EDMS 13:58 Transvaginal Study (probe) In Process Unspecified. EDMS 14:22 Lonnie Hale, RN is Primary Nurse. jb4 Administered Medications: 11:38 Drug: Ondansetron IVP 4 mg IVP once; over 2 minutes Route: IVP; Site: right antecubital;jb4 11:38 Drug: morphine IVP or IV 4 mg IVP once over 4 mins Route: IVP; Infused Over: 4 mins; jb4 Site: right antecubital; 11:38 Drug: NS 0.9% IV 500 ml IV at bolus once; to be given as a bolus over 30 minutes Route: jb4 IV; Rate: bolus; Site: right antecubital; 15:12 Drug: Ketorolac IVP 15 mg IVP once Route: IVP; Site: right antecubital; jb4 15:12 Follow up: Response: Medication administered at discharge. jb4 Outcome: 14:44 Discharge ordered by . ec2 15:13 Patient left the ED. jb4 Signatures: Dispatcher [employer] EDStacie Georges RN RN aa5 Laina Melendez RN RN Lonnie Hale, GHASSAN RN jb4 Keeley Royal mg5 Marco Roberto MD MD ec2 Corrections: (The following items were deleted from the chart) 11:45 11:36 Stacie Chow RN is Primary Nurse. aa5 aa5
--- NOTE | 2024-09-27 14:45 | EDPHYS ---
Physician Documentation [facility] Name: Cris Holt Age: 29 yrs Sex: Female : 1995 Arrival Date: 09/27/2024 Time: 10:55 Bed 5 Private MD: ED Physician Marco Roberto HPI: 09/27 11:22 This 29 yrs old Female presents to ER via Ambulatory with complaints of ec2 Abdominal Pain. 11:22 Patient arrives today for evaluation of upper abdominal pain. States that she has been ec2 having upper abdominal pain and now having right-sided abdominal pain. Patient reports associated nausea. No vomiting. Reports that she has diarrhea but that is baseline for her. Patient reports some recent cough and cold symptoms. Denies any urinary complaints. Patient reports previous history of cholecystectomy.. Historical: - Allergies: 11:20 No Known Allergies; ss - Home Meds: 11:20 None [Active]; ss - PSHx: 11:20 Cholecystectomy; hernia repair; tubal ligation; ss ROS: 11:23 Constitutional: as per hpi ec2 Exam: 11:23 Constitutional: GEN: NAD Head: atraumatic Eyes: EOMI Ears: External ears are ec2 normal. CV: regular rate LUNGS: no respiratory distress ABD: Nondistended, obese, tender epigastrium and right abdomen, not guarding, not rigid SKIN: no evidence of rashes MSK: no evidence of trauma Vital Signs: 11:39 BP 131 / 96; Pulse 94; Resp 16; Temp 99.1(TE); Pulse Ox 100% ; Weight 116.57 kg; Height jb4 5 ft. 4 in. ; 14:22 BP 120 / 72; Pulse 75; Resp 16; Temp 98.4(TE); Pulse Ox 97% on R/A; jb4 11:39 Body Mass Index 44.11 (116.57 kg, 162.56 cm) jb4 MDM: 11:18 Medical Screening Exam initiated ec2 11:23 Data reviewed: vital signs, nurses notes. ED course: Patient arrives today for ec2 evaluation of upper and right-sided abdominal pain. Examination remarkable for abdominal findings as above. Will obtain lab work, CT imaging and urine studies. . 14:44 ED course: Ultrasound shows simple cyst. Will discharge home and have the patient ec2 follow-up with gynecology for repeat imaging. Return precautions given.. 09/27 11:22 Order name: CBC with Diff; Complete Time: 12:46 ec2 09/27 11:22 Order name: CMP; Complete Time: 12:08 ec2 09/27 11:22 Order name: Lipase; Complete Time: 12:08 ec2 09/27 11:22 Order name: Test, Urine; Complete Time: 12:46 ec2 09/27 11:22 Order name: Urinalysis w/ reflexes; Complete Time: 12:52 ec2 09/27 11:46 Order name: CBC Smear Scan; Complete Time: 12:46 EDMS 09/27 11:22 Order name: CT Abd/Pelvis - IV Contrast Only; Complete Time: 13:21 ec2 09/27 13:21 Order name: Transvaginal Study (probe); Complete Time: 14:44 ec2 09/27 11:22 Order name: IV Saline Lock; Complete Time: 11:38 ec2 09/27 11:22 Order name: Labs collected and sent; Complete Time: 11:38 ec2 Administered Medications: 11:38 Drug: Ondansetron IVP 4 mg IVP once; over 2 minutes Route: IVP; Site: right antecubital;jb4 11:38 Drug: morphine IVP or IV 4 mg IVP once over 4 mins Route: IVP; Infused Over: 4 mins; jb4 Site: right antecubital; 11:38 Drug: NS 0.9% IV 500 ml IV at bolus once; to be given as a bolus over 30 minutes Route: jb4 IV; Rate: bolus; Site: right antecubital; 15:12 Drug: Ketorolac IVP 15 mg IVP once Route: IVP; Site: right antecubital; jb4 15:12 Follow up: Response: Medication administered at discharge. jb4 Disposition Summary: 09/27/24 14:44 Discharge Ordered Notes: Location: Home ec2 Condition: Stable ec2 Diagnosis - Other ovarian cysts ec2 Followup: ec2 - With: Private Physician - When: - Reason: Re-evaluation by your physician Discharge Instructions: - Discharge Summary Sheet ec2 - Ovarian Cyst, [id number] ec2 Forms: - Medication Reconciliation Form ec2 - Antibiotic Education ec2 - Prescription Opioid Use ec2 - Patient Portal Instructions ec2 - Leadership Thank You Letter ec2 Signatures: Dispatcher [employer] EDMS Laina Melendez RN RN ss Lonnie Hale RN RN jb4 Marco Roberto MD MD ec2 Corrections: (The following items were deleted from the chart) 11:22 CBC+H.LAB.BRZ ordered. EDMS EDMS 11:22 COMPREHENSIVE METABOLIC PANEL+C.LAB.BRZ ordered. EDMS EDMS 11:22 LIPASE+C.LAB.BRZ ordered. EDMS EDMS 11:22 Test, Urine+UC.LAB.BRZ ordered. EDMS EDMS 11:22 Urinalysis+U.LAB.BRZ ordered. EDMS EDMS
[2024-09-27] MEDS ORDERED: KETOROLAC 30 MG/ML INJ ONE (15:03)
[2024-09-27 16:37] VITALS: BP 120/72; TEMP 98.4; O2SAT 97
== END 2024-09-27 15:13 | disposition home or self-care (01) ==
LOC: ER 10:55
DX: N83.299 Other ovarian cyst, unspecified side (principal)
CPT/HCPCS: 36415; 74177; 76830; 80053; 81001; 81025; 83690; 85025; 96374; 96375; 99284; J2405; J7040; Q9967